=== PATIENT | male | born 1955 | race African-American/Black ===

== ENCOUNTER 2019-08-07 15:01 | Inpatient (IN) ==
--- NOTE | 2019-08-07 15:19 | Emergency Department Note ---
Impression & Plan Hematuria, Bladder mass, Anemia, Blood pressure abnormally low, Weakness ED Provider Note NAME: ARMAAN SPRINGER51Truman BESS AGE: 63 SEX: M ARRIVES VIA: Walk-In INFORMANT: Patient, ED PROVIDER(S): Jaleel Combs MD CHIEF COMPLAINT: Hematuria PLAN: Disposition: Admit MEDICAL DECISION MAKING: The patient is a pleasant 63-year-old gentleman, current inmate at [facility], pmhx DM2, HTN, BPH who presents emergency department for evaluation of gross hematuria which began today with a similar episode that happened last week with unremarkable x-ray of his abdomen and urine analysis per his report. The patient leonela any history of similar episodes in the past. He denies any fevers cough congestion, nausea, vomiting, diarrhea. He denies any lightheadedness though he does feel weak overall. On arrival the patient is fartigued appearing but in NAD, AF BP 80s/60s but mentating normally and VS otherwise stable. He appears clinically dry. Abdomen is benign. WBC and platelets within normal limits. H/H 10.2/32 without prior values for co mparison in our system however upon discussion with [facility] it appears his last H/H was in October 2018 where he had a hemoglobin of 11.5. Chemistry without acidosis. LFTs unremarkable. UA demonstrates gross hematuria without evidence of infection. CT of abdomen pelvis was performed and demonstrates a large bladder mass measuring 9 x 7 x 6 cm. Mass is suspicious for malignancy versus possible large clot. I did review these findings with the patient in addition to Dr. Loyola, [facility] and given the patient's low blood pressure and anemia of unclear chronicity in the setting of his bladder mass we agreed reasonable to proceed with admission for trending of H/H and likely urology consultation. Case was discussed with Justina Landaverde, [facility] PAC, with Dr. Dempsey, [facility] hospitalist, who will evaluate the patient for admission. Triage Nursing notes reviewed and agree them. Additional history obtained from [facility] report Prior medical records reviewed Vital Signs: reviewed and remarkable for hypotension. Differential diagnosis: Renal colic, UTI, appendicitis, diverticulitis, mesenteric ischemia, aortic pathology, infections, inflammatory bowel disease, PUD, biliary pathology, as well as other pathologies. ER treatment provided: See below. Diagnostics interpreted by me: Cardiac Monitoring: An order for continuous cardiac monitoring was placed and demonstrated NSR, 73 bpm, no ectopy. Laboratory studies: See below Imaging studies: ABDOMEN AND PELVIS CT WITH IV CONTRAST CT DOSE: 673.41 mGy.cm HISTORY: Acute hematuria gross hematuria TECHNIQUE: Multiaxial CT images of the abdomen and pelvis were performed following the IV administration of 90 cc of Optiray 320, A dose lowering technique was utilized adhering to the principles of ALARA. COMPARISON STUDY: None. FINDINGS: Clear lung bases. Imaged inferior cardiac chambers are unremarkable. Trace pericardial effusion. No pneumatosis or pneumoperitoneum. Spleen, gallbladder and left adrenal gland are unremarkable. Indeterminate soft tissue attenuating 2.7 x 2.0 cm right adrenal gland lesion. Unremarkable appearance of the liver. Indeterminate 4 mm hypodensity of the hepatic dome is too small to characterize. Patency of the hepatic and portal veins. 12 mm hypodensity of the interpolar left kidney renal sinus may reflect a renal cyst. No ureteral calculi or obstructive uropathy. Moderate urinary bladder distention with mild diffuse wall thickening. Marked prostamegaly. There is a heterogeneous ovoid lesion involving the central and right paracentral urinary bladder which measures up to at least 9.2 x 7.4 x 6.7 cm, image 347 series 3. Mild fusiform dilation of the distal abdominal aorta, 3.1 x 2.9 cm. Fusiform dilation of the right common iliac artery, 2.2 cm with ulcerative plaque. Severe atheromatous plaque noted throughout. Mild nonspecific stranding surrounds the aorta and common iliac arteries. Unremarkable IVC. No adenopathy. No bowel obstruction or bowel wall thickening. Mild colonic diverticulosis. Mild fecal retention. Normal appendix. Small fat filled periumbilical hernia. Soft tissues are unremarkable. There are no suspicious lytic or blastic osseous lesions identified. Degenerative changes of the spine, pelvis and hips. IMPRESSION: 1. Marked prostamegaly with urinary bladder distention and wall thickening suggestive of chronic bladder outlet obstruction. Additionally, there is a large heterogeneous intraluminal mass of the urinary bladder which measures over 9 cm in greatest dimension. Urothelial malignancy versus intraluminal hematoma are the primary differential considerations. Correlation with urology consultation and cystoscopy recommended. 2. No urolith or obstructive uropathy. 3. 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 Additionally, there is mild nonspecific periaortic inflammatory stranding possibly reflecting underlying aortitis. 4. No bowel obstruction or bowel wall thickening. Normal appendix. 5. Additional findings as above. Consultation(s): Case was discussed with Justina Landaverde [facility] PAC, with Dr. Dempsey, [facility] hospitalist who will evaluate the patient for admission. HPI: The patient is a pleasant 63-year-old gentleman, current inmate at [facility], pmx DM2, HTN, BPH who presents emergency department for evaluation of gross hematuria which began today with a similar episode that happened last week with unremarkable x-ray of his abdomen and urine analysis per his report. The patient leonela any history of similar episodes in the past. He denies any fevers cough congestion, nausea, vomiting, diarrhea. He denies any lightheadedness though he does feel weak overall. ROS: See above HPI for pertinent positives & negatives. A total of 10 systems reviewed and were otherwise negative. PAST MEDICAL HISTORY:See Below PAST SURGICAL HISTORY:See Below FAMILY HISTORY:See Below SOCIAL HISTORY:See Below HOME MEDICATIONS:See Below ALLERGIES:See Below VITALS:See Below PHYSICAL EXAMINATION: GENERAL: Awake, alert, fatigued-appearing, in no distress HENT: Normocephalic, atraumatic. Oropharynx with dry mucous membranes and otherwise unremarkable. EYES: Normal conjunctiva. Sclera non-icteric. NECK: Supple. No nuchal rigidity. FROM. No JVD. RESPIRATORY: Clear to auscultation. CARDIAC: Regular rate, normal rhythm. Extremities warm and well perfused. Pulses equal. ABDOMEN: Soft, non-distended. No tenderness to palpation. No rebound or guarding. No masses. RECTAL: Deferred. MUSCULOSKELETAL: Chest examination reveals no tenderness. The back is symmetrical on inspection without obvious abnormality. There is no CVA tenderness to palpation. No joint edema. LOWER EXTREMITIES: Calves are equal size bilaterally and non-tender. No edema. No discoloration. NEURO: Normal sensorium. No sensory or motor deficits noted. SKIN: No rash or jaundice noted. ED COURSE: Jaleel Combs MD Past Med/Surg History Medical History Anemia BPH (benign prostatic hyperplasia) CVA (cerebral vascular accident) Diabetes mellitus, type II HLD (hyperlipidemia) HTN (hypertension) Surgical History No pertinent past surgical history Family History Denies family history of Cancer Social History Preferred Language: [place] Communication Ability: Effective Beliefs That Will Affect Care: None Current Living Situation: Other Current Living Situation Comment: [place] Feels Safe at Home: Yes Smoking Status: Former smoker Do You Dip or Chew Tobacco: No ; Hx Alcohol Use: No Hx Substance Use: No Allergies Allergies Allergy/AdvReac Type Severity Reaction Status Date / Time No Known Allergies Allergy Verified 08/07/19 16:12 Home Meds Home Medications Medication Instructions Recorded Confirmed amlodipine 10 mg PO DAILY 08/07/19 08/07/19 aspirin [Aspir-81] 81 mg PO DAILY 08/07/19 08/07/19 atorvastatin 80 mg PO DAILY 08/07/19 08/07/19 glipizide 10 mg PO BID 08/07/19 08/07/19 hydrochlorothiazide 25 mg PO DAILY 08/07/19 08/07/19 insulin NPH and regular human 5 unit SUBCUT BID 08/07/19 08/07/19 [Novolin 70/30 U-100 Insulin] latanoprost 1 drp OPHTHALMIC (EYE) PM 08/07/19 08/07/19 lisinopril 20 mg PO DAILY 08/07/19 08/07/19 metformin 1,000 mg PO BID 08/07/19 08/07/19 terazosin 10 mg PO HS 08/07/19 08/07/19 Results & Data (ED) Vital Signs Vital Signs - 24 hr 08/07/19 15:12 08/07/19 15:43 08/07/19 15:47 Temperature 36.5 C Temperature Source Oral Pulse Rate 92 H 73 74 Pulse Rate [Apical] Pulse Rate from SpO2 Sensor 73 72 Respiratory Rate 20 18 18 Blood Pressure 88/64 L 117/72 Blood Pressure [Left Arm] Blood Pressure Mean 72 81 Blood Pressure Mean [Left Arm] Blood Pressure Position Sitting Pulse Oximetry 100 100 99 Oxygen Delivery Method Room Air Sepsis Recent Fever Within 48 Hours No Sepsis New/Unexplained Change in Mental Status No Sepsis Action Taken by Nursing No Action Required 08/07/19 15:52 08/07/19 16:00 08/07/19 16:01 Temperature Temperature Source Pulse Rate 67 67 Pulse Rate [Apical] Pulse Rate from SpO2 Sensor 67 68 Respiratory Rate 16 20 Blood Pressure 121/73 Blood Pressure [Left Arm] Blood Pressure Mean 89 Blood Pressure Mean [Left Arm] Blood Pressure Position Pulse Oximetry 98 100 100 Oxygen Delivery Method Room Air Sepsis Recent Fever Within 48 Hours Sepsis New/Unexplained Change in Mental Status Sepsis Action Taken by Nursing 08/07/19 17:55 08/07/19 17:56 08/07/19 18:00 Temperature Temperature Source Pulse Rate 67 Pulse Rate [Apical] Pulse Rate from SpO2 Sensor 68 65 67 Respiratory Rate 13 Blood Pressure 126/72 125/72 Blood Pressure [Left Arm] Blood Pressure Mean 95 90 Blood Pressure Mean [Left Arm] Blood Pressure Position Pulse Oximetry 100 100 100 Oxygen Delivery Method Sepsis Recent Fever Within 48 Hours Sepsis New/Unexplained Change in Mental Status Sepsis Action Taken by Nursing 08/07/19 18:01 08/07/19 19:44 08/07/19 19:45 Temperature Temperature Source Pulse Rate 67 74 Pulse Rate [Apical] Pulse Rate from SpO2 Sensor 67 77 75 Respiratory Rate 14 23 Blood Pressure 127/61 Blood Pressure [Left Arm] Blood Pressure Mean 79 Blood Pressure Mean [Left Arm] Blood Pressure Position Pulse Oximetry 100 96 100 Oxygen Delivery Method Sepsis Recent Fever Within 48 Hours Sepsis New/Unexplained Change in Mental Status Sepsis Action Taken by Nursing 08/07/19 19:47 Temperature Temperature Source Pulse Rate Pulse Rate [Apical] 75 Pulse Rate from SpO2 Sensor Respiratory Rate 18 Blood Pressure Blood Pressure [Left Arm] 127/61 Blood Pressure Mean Blood Pressure Mean [Left Arm] 83 Blood Pressure Position Pulse Oximetry 98 Oxygen Delivery Method Sepsis Recent Fever Within 48 Hours Sepsis New/Unexplained Change in Mental Status Sepsis Action Taken by Nursing Laboratory Data Attestation: I reviewed the patient's lab results. Result diagrams: 08/07/19 15:42 08/07/19 15:42 Lab Results 08/07/19 08/07/19 08/07/19 Range/Units 15:24 15:42 15:42 WBC 5.18 (4.8-10.8) K/uL RBC 4.49 L (4.7-6.1) M/uL Hgb 10.2 L (14.0-18.0) g/dL Hct 32.0 L (42-52) % MCV 71.3 L (80-100) fL MCH 22.7 L (25-34) pg MCHC 31.9 L (32-36) g/dL RDW Std Deviation 43.2 (36.4-46.3) fL RDW Coeff of Bony 16.7 H (11.5-14.5) % Plt Count 206 (130-400) K/uL Immature Gran % (Auto) 0.2 % Neut % (Auto) 61.6 % Lymph % (Auto) 30.1 % [place] % (Auto) 7.1 % Eos % (Auto) 0.6 % Baso % (Auto) 0.4 % Immature Gran # (Auto) 0.01 (0.00-0.02) K/uL Neut # (Auto) 3.19 (1.4-6.5) K/uL Lymph # (Auto) 1.56 (1.2-3.4) K/uL [place] # (Auto) 0.37 (0.11-0.59) K/uL Eos # (Auto) 0.03 (0-0.5) K/uL Baso # (Auto) 0.02 (0-0.2) K/uL PT (9.0-12.0) Seconds INR (0.9-1.1) Sodium 141 (136-145) mmol/L Potassium 3.3 L (3.5-5.1) mmol/L Chloride 105 (98-107) mmol/L Carbon Dioxide 27 (21-32) mmol/L Anion Gap 9.0 (3-11) BUN 17 (7-18) mg/dl Creatinine 1.15 (0.6-1.4) mg/dl Est Cr Clr Drug Dosing Not Reportable Est GFR ( Amer) 79.2 Est GFR (Non-Af Amer) 68.3 BUN/Creatinine Ratio 14.6 (10-20) Glucose 233 H (70-99) mg/dl Calcium 8.8 (8.5-10.1) mg/dl Total Bilirubin 0.2 (0.2-1) mg/dl AST 9 L (15-37) U/L ALT 24 (12-78) U/L Alkaline Phosphatase 70 (45-117) U/L Total Protein 7.6 (6.4-8.2) gm/dl Albumin 3.4 (3.4-5.0) gm/dl Globulin 4.2 H (2.5-4.0) gm/dl Albumin/Globulin Ratio 0.8 L (0.9-2) Lipase 95 (73-393) U/L Urine Color Red Urine Appearance Turbid A (Clear) Urine pH 7.5 (4.5-7.5) Ur Specific [place] 1.025 (1.000-1.030) Urine Protein 3+ H (Negative) Urine Glucose (UA) 1+ H (Negative) Urine Ketones Negative (Negative) Urine Blood 3+ H (Negative) Urine Nitrite Negative (Negative) Urine Bilirubin Negative (Negative) Urine Urobilinogen Negative (Negative) Ur Leukocyte Esterase Negative (Negative) Urine RBC >30 H (0-4) /hpf Urine WBC 5-10 H (0-5) /hpf Ur Epithelial Cells 0-5 (0-5) /lpf Urine Bacteria Negative (Negative) Hepatitis C Ab Screen (Neg) 08/07/19 08/07/19 Range/Units 15:42 15:42 WBC (4.8-10.8) K/uL RBC (4.7-6.1) M/uL Hgb (14.0-18.0) g/dL Hct (42-52) % MCV (80-100) fL MCH (25-34) pg MCHC (32-36) g/dL RDW Std Deviation (36.4-46.3) fL RDW Coeff of Bony (11.5-14.5) % Plt Count (130-400) K/uL Immature Gran % (Auto) % Neut % (Auto) % Lymph % (Auto) % [place] % (Auto) % Eos % (Auto) % Baso % (Auto) % Immature Gran # (Auto) (0.00-0.02) K/uL Neut # (Auto) (1.4-6.5) K/uL Lymph # (Auto) (1.2-3.4) K/uL [place] # (Auto) (0.11-0.59) K/uL Eos # (Auto) (0-0.5) K/uL Baso # (Auto) (0-0.2) K/uL PT 10.3 (9.0-12.0) Seconds INR 1.0 (0.9-1.1) Sodium (136-145) mmol/L Potassium (3.5-5.1) mmol/L Chloride (98-107) mmol/L Carbon Dioxide (21-32) mmol/L Anion Gap (3-11) BUN (7-18) mg/dl Creatinine (0.6-1.4) mg/dl Est Cr Clr Drug Dosing Est GFR ( Amer) Est GFR (Non-Af Amer) BUN/Creatinine Ratio (10-20) Glucose (70-99) mg/dl Calcium (8.5-10.1) mg/dl Total Bilirubin (0.2-1) mg/dl AST (15-37) U/L ALT (12-78) U/L Alkaline Phosphatase (45-117) U/L Total Protein (6.4-8.2) gm/dl Albumin (3.4-5.0) gm/dl Globulin (2.5-4.0) gm/dl Albumin/Globulin Ratio (0.9-2) Lipase (73-393) U/L Urine Color Urine Appearance (Clear) Urine pH (4.5-7.5) Ur Specific [place] (1.000-1.030) Urine Protein (Negative) Urine Glucose (UA) (Negative) Urine Ketones (Negative) Urine Blood (Negative) Urine Nitrite (Negative) Urine Bilirubin (Negative) Urine Urobilinogen (Negative) Ur Leukocyte Esterase (Negative) Urine RBC (0-4) /hpf Urine WBC (0-5) /hpf Ur Epithelial Cells (0-5) /lpf Urine Bacteria (Negative) Hepatitis C Ab Screen Neg (Neg) Administered Medications Ceftriaxone Sodium 2,000 mg/ (Dextrose) 70 mls @ 100 mls/hr IV Q24H RAUL; Protocol Stop: 08/12/19 22:29 Last Infusion: 08/07/19 23:28 Dose: 0 mls/hr Documented by: [id number] Admin: 08/07/19 22:33 Dose: 100 mls/hr Documented by: [id number] Sodium Chloride (Nss 1000ml) 1,000 mls @ 80 mls/hr IV .[id number] RAUL Stop: 08/08/19 11:29 Last Admin: 08/07/19 22:41 Dose: 80 mls/hr Documented by: [id number] Insulin Glargine (Lantus Solostar Pen) 0 - 12 units SC BID RAUL Stop: 09/06/19 21:50 Last Admin: 08/07/19 22:55 Dose: 6 units Documented by: [id number] Cosigned by: [id number] Latanoprost (Xalatan Oph) 1 drops OP PM RAUL Stop: 09/06/19 21:50 Last Admin: 08/07/19 22:33 Dose: 1 drops Documented by: [id number] Terazosin HCl (Hytrin) 10 mg PO HS RAUL Stop: 09/06/19 21:50 Last Admin: 08/07/19 22:32 Dose: 10 mg Documented by: [id number] Discontinued Medications Sodium Chloride (Nss 1000ml) 1,000 mls @ 999 mls/hr IV .[id number] ONE Stop: 08/07/19 16:25 Last Infusion: 08/07/19 18:12 Dose: 0 mls/hr Documented by: [id number] Admin: 08/07/19 15:53 Dose: 999 mls/hr Documented by: [id number] Insulin Aspart (Novolog Flexpen) 0 units SC ACHS RAUL Stop: 09/06/19 21:50 Last Admin: 08/07/19 22:56 Dose: 7 units Documented by: [id number] Cosigned by: [id number] Ioversol (Optiray 320 100ml) 90 ml IV ONCE PRN PRN Reason: Interaction Checking Stop: 08/11/19 16:50 Last Admin: 08/07/19 16:52 Dose: 90 ml Documented by: [id number] Potassium Chloride (Klor-Con M20) 40 meq PO 2215 ONE Stop: 08/07/19 22:16 Last Admin: 08/07/19 22:33 Dose: 40 meq Documented by: [id number] Blood Pressure Blood Pressure Findings: Low blood pressure Blood Pressure Disposition: further management by hospitalist Discharge Plan Visit Data *Final* Discharge Date/Time: 08/07/19 21:18 Chief Complaint: Dehydration Stated Complaint: DEHYDRATED ED Provider: Jaleel Combs Discharge Problem: Hematuria, Bladder mass, Anemia, Blood pressure abnormally low, Weakness Patient Disposition: Admitted As Inpatient Discharge Instructions Interventions: ED Discharge Assessment Last Done: 08/07/19 21:18 Discharge Problem: Hematuria Qualifiers: Hematuria type: gross Qualified Code(s): R31.0 - Gross hematuria Anemia Qualifiers: Anemia type: unspecified type Qualified Code(s): D64.9 - Anemia, unspecified
[2019-08-07] MEDS ORDERED: SODIUM CHLORIDE 0.9% 1000ML 1,000 ML IV ONE (15:25)
[2019-08-07 15:56] LABS: Basophils # (auto) 0.02 K/uL (0-0.2); Basophils % (auto) 0.4 %; Eosinophils # (auto) 0.03 K/uL (0-0.5); Eosinophils % (auto) 0.6 %; Hemoglobin 10.2 g/dL (14.0-18.0); Immature Granulocytes # (auto) 0.01 K/uL (0.00-0.02); Immature Granulocytes % (auto) 0.2 %; Lymphocytes # (auto) 1.56 K/uL (1.2-3.4); Lymphocytes % (auto) 30.1 %; Mean Corpuscular Hemoglobin 22.7 pg (25-34); Mean Corpuscular Hgb Conc 31.9 g/dL (32-36); Mean Corpuscular Volume 71.3 fL (80-100); Monocytes # (auto) 0.37 K/uL (0.11-0.59); Monocytes % (auto) 7.1 %; Neutrophils # (auto) 3.19 K/uL (1.4-6.5); Neutrophils % (auto) 61.6 %; Platelet Count 206 K/uL (130-400); RDW Coefficient of Variation 16.7 % (11.5-14.5); RDW Standard Deviation 43.2 fL (36.4-46.3); Red Blood Count 4.49 M/uL (4.7-6.1); White Blood Count 5.18 K/uL (4.8-10.8)
[2019-08-07 16:12] LABS: Alanine Aminotransferase 24 U/L (12-78); Albumin Level 3.4 gm/dl (3.4-5.0); Aspartate Aminotransferase 9 U/L (15-37); BUN Creatinine Ratio 14.6 (10-20); Blood Urea Nitrogen 17 mg/dl (7-18); Calcium 8.8 mg/dl (8.5-10.1); Carbon Dioxide 27 mmol/L (21-32); Chloride 105 mmol/L (98-107); Est GFR (African American) 79.2; Est GFR (Non-African American) 68.3; Glucose 233 mg/dl (70-99); Lipase 95 U/L (73-393); Potassium 3.3 mmol/L (3.5-5.1); Prothrombin Time 10.3 Seconds (9.0-12.0); Sodium 141 mmol/L (136-145)
[2019-08-07 16:15] LABS: Albumin Globulin Ratio 0.8 (0.9-2); Alkaline Phosphatase 70 U/L (45-117); Bilirubin,Total 0.2 mg/dl (0.2-1); Globulin 4.2 gm/dl (2.5-4.0); Total Protein 7.6 gm/dl (6.4-8.2)
[2019-08-07 16:15] LABS: Appearance Urine Turbid (Clear); Bilirubin Urine Negative (Negative); Blood Urine 3+ (Negative); Color Urine Red; Glucose Urine UA 1+ (Negative); Ketones Urine Negative (Negative); Leukocyte Esterase Urine Negative (Negative); Nitrite Urine Negative (Negative); Specific Gravity Urine 1.025 (1.000-1.030); Urobilinogen Urine Negative (Negative); pH Urine 7.5 (4.5-7.5)
[2019-08-07 16:17] LABS: Protein Urine 3+ (Negative)
[2019-08-07 16:18] LABS: Sulfosalicylic Acid Urine Positive (Negative)
[2019-08-07 16:38] LABS: RBC Urine >30 /hpf (0-4)
[2019-08-07 16:40] LABS: Epithelial Cell Urine 0-5 /lpf (0-5)
[2019-08-07 16:41] LABS: Bacteria Urine Negative (Negative)
[2019-08-07] MEDS ORDERED: IOVERSOL 100ml IV PRN (16:51)
--- NOTE | 2019-08-07 17:08 | CT Scan Report ---
ABDOMEN AND PELVIS CT WITH IV CONTRAST CT DOSE: 673.41 mGy.cm HISTORY: Acute hematuria gross hematuria TECHNIQUE: Multiaxial CT images of the abdomen and pelvis were performed following the IV administrat ion of 90 cc of Optiray 320, A dose lowering technique was utilized adhering to the principles of AL CARMELLA. COMPARISON STUDY: None. FINDINGS: Clear lung bases. Imaged inferior cardiac chambers are unremarkable. Trace pericardial effusion. No p neumatosis or pneumoperitoneum. Spleen, gallbladder and left adrenal gland are unremarkable. Indeterm inate soft tissue attenuating 2.7 x 2.0 cm right adrenal gland lesion. Unremarkable appearance of the liver. Indeterminate 4 mm hypodensity of the hepatic dome is too small to characterize. Patency of t he hepatic and portal veins. 12 mm hypodensity of the interpolar left kidney renal sinus may reflect a renal cyst. No ureteral [place] culi or obstructive uropathy. Moderate urinary bladder distention with mild diffuse wall thickening. Marked prostamegaly. There is a heterogeneous ovoid lesion involving the central and right paracentra l urinary bladder which measures up to at least 9.2 x 7.4 x 6.7 cm, image 347 series 3. Mild fusiform dilation of the distal abdominal aorta, 3.1 x 2.9 cm. Fusiform dilation of the right common iliac ar perla, 2.2 cm with ulcerative plaque. Severe atheromatous plaque noted throughout. Mild nonspecific st randing surrounds the aorta and common iliac arteries. Unremarkable IVC. No adenopathy. No bowel obstruction or bowel wall thickening. Mild colonic diverticulosis. Mild fecal retention. Nor mal appendix. Small fat filled periumbilical hernia. Soft tissues are unremarkable. There are no susp icious lytic or blastic osseous lesions identified. Degenerative changes of the spine, pelvis and hip s. IMPRESSION: 1. Marked prostamegaly with urinary bladder distention and wall thickening suggestive of chronic blad linda outlet obstruction. Additionally, there is a large heterogeneous intraluminal mass of the urinary bladder which measures over 9 cm in greatest dimension. Urothelial malignancy versus intraluminal he matoma are the primary differential considerations. Correlation with urology consultation and cystosc opy recommended. 2. No urolith or obstructive uropathy. 3. 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 Additionally, there is mild nonspecific periaort ic inflammatory stranding possibly reflecting underlying aortitis. 4. No bowel obstruction or bowel wall thickening. Normal appendix. 5. Additional findings as above. ACT 112: Negative or not required by law. The above report was generated using voice recognition software. It may contain grammatical, syntax o r spelling errors. Electronically signed by: Alan Lopez M.D. 08/07/2019 5:07 PM
--- NOTE | 2019-08-07 20:12 | History & Physical Report ---
Date of Service August 07, 2019 Assessment & Plan (1) Hematuria: (2) Bladder mass: Pt is 63 y/o M with PMH CVA, HTN, HLD, BPH, anemia, DM II who presented to ER with complaint of hematuria x1 week. Today with hematuria and has had difficulty urinating today and suprapubic pressure. Denies F/C, N/V In ER pt afebrile, P: 92, R: 20, BP: 88/64 up to 125/72, 100% on RA. No leukocytosis, H/H: 10.2/32, BUN: 17, Cr: 1.15, GFR:79, UA: 3+ protein, 3+blood, >30 RBC, no bacteria CT ABD/PELVIS:Marked prostamegaly with urinary bladder distention and wall thickening suggestive of chronic bladder outlet obstruction. Additionally, there is a large heterogeneous intraluminal mass of the urinary bladder which measures over 9 cm in greatest dimension. Urothelial malignancy versus intraluminal hematoma are the primary differential considerations. No urolith or obstructive uropathy. -In ER given 1L NSS -In ER pt reports was able to urinate and reports passing large clot -Bladder scan prn -Rocephin -NPO midnight -IVF -Urology consult -CBC, BMP in am (3) Hypokalemia: K: 3.3 -Replace and monitor (4) Anemia: Hgb:10.2 It is reported pt with Hgb: 11.5 in 10/2018 at [facility] -Monitor H&H (5) Diabetes mellitus, type II: Type II Diabtes Mellitus with [facility] current use of insulin -Hold metformin, glipizide, home insulin -NovoLog, Lantus sliding scale per protocol -A1c in a.m. (6) CVA (cerebral vascular accident): No residual deficit -Hold aspirin for now (7) HTN (hypertension): Initially hypotensive in ER with BP 88/64 up to 125/72 1 L NSS -Hold lisinopril, amlodipine, HCTZ for now and monitor BP closely (8) BPH (benign prostatic hyperplasia): -Continue terazosin (9) HLD (hyperlipidemia): -Continue atorvastatin DVT Prophylaxis -SCDs Full Code as per discussion with pt Follows with Dr Alex at [facility] for routine care Pt was seen and care coordinated with Dr Dempsey. See addendum History of Present Illness Chief Complaint: Hematuria Primary Care Provider: ZURDO Mcdonald Pt is 63 y/o M with PMH CVA, HTN, HLD, BPH, anemia, DM II who presented to ER with complaint of hematuria x1 week. Patient states 1 week ago noticed hematuria which then improved. Patient states again noted hematuria and has had difficulty urinating today. Reports pressure sensation in suprapubic area. Denies other abdominal, flank, back pain, fever, chills, nausea, vomiting. Denies dysuria. Reports history of BPH and frequent urination and reports taking terazosin. While in ER patient states was eventually able to urinate and passed large clot and since with resolution of pressure to suprapubic area. Patient reports history hemoglobin. It is reported from [facility] that patient with hemoglobin of 11.5 in October 2018. Denies diaphoresis, diarrhea, constipation, CHACKO, dizziness, syncope, vision changes, neck pain, CP, SOB, orthopnea, palpitations, cough, sore throat, choking, otalgia, rhinorrhea, paresthesias, weakness, extremity weakness, extremity edema, rashes. Allergies Allergy/AdvReac Type Severity Reaction Status Date / Time No Known Allergies Allergy Verified 08/07/19 16:12 Home Medications Home Medications Medication Instructions Recorded Confirmed Type amlodipine 10 mg PO DAILY 08/07/19 08/07/19 History aspirin [Aspir-81] 81 mg PO DAILY 08/07/19 08/07/19 History atorvastatin 80 mg PO DAILY 08/07/19 08/07/19 History glipizide 10 mg PO BID 08/07/19 08/07/19 History hydrochlorothiazide 25 mg PO DAILY 08/07/19 08/07/19 History insulin NPH and regular human 5 unit SUBCUT BID 08/07/19 08/07/19 History [Novolin 70/30 U-100 Insulin] latanoprost 1 drp OPHTHALMIC (EYE) PM 08/07/19 08/07/19 History lisinopril 20 mg PO DAILY 08/07/19 08/07/19 History metformin 1,000 mg PO BID 08/07/19 08/07/19 History terazosin 10 mg PO HS 08/07/19 08/07/19 History Past Med/Surg History Medical History (Updated 08/07/19 @ 20:16 by Renetta Landaverde PA-C) Anemia BPH (benign prostatic hyperplasia) CVA (cerebral vascular accident) Diabetes mellitus, type II HLD (hyperlipidemia) HTN (hypertension) Surgical History (Updated 08/07/19 @ 20:13 by Renetta Landaverde PA-C) No pertinent past surgical history Family History (Updated 08/07/19 @ 20:13 by Renetta Landaverde PA-C) Denies family history of Cancer Social History (Updated 08/07/19 @ 20:14 by Renetta Landaverde PA-C) Preferred Language: Faroese Communication Ability: Effective Beliefs That Will Affect Care: None Current Living Situation: Other Current Living Situation Comment: [facility] Feels Safe at Home: Yes Smoking Status: Former smoker Do You Dip or Chew Tobacco: No ; Hx Alcohol Use: No Hx Substance Use: No Review of Systems Review of Systems: All systems reviewed & are unremarkable except as noted in HPI & below Physical Exam Physical Exam: General: no distress, WDWN Head: normocephalic, atraumatic Eyes: PERRL, EOM's intact, conjunctiva non-injected, anicteric ENT: normal inspection external ears, nose, mucous membranes moist Neck: supple, trachea midline Lungs: clear, no respiratory distress, no wheezing/rhonchi/rales CV: RRR, no pretibial edema Abd: +healed scar to right side of abdomen, normal BS, soft, non-tender, no flank tenderness to palpation Ext: no cyanosis, no calf tenderness Neuro: A&O x 3, no focal deficits noted, normal affect Skin: warm, dry Results & Data Results & Data ([facility]) Vital Signs (Past 12 Hours) Vital Signs Temp Pulse Pulse Resp BP BP Pulse Ox 08/07/19 19:47 75 18 127/61 98 08/07/19 19:44 96 08/07/19 18:01 67 14 100 08/07/19 18:00 67 13 125/72 100 08/07/19 17:56 100 08/07/19 17:55 126/72 100 08/07/19 16:01 67 20 100 08/07/19 16:00 67 16 121/73 100 08/07/19 15:52 98 08/07/19 15:47 74 18 99 08/07/19 15:43 73 18 117/72 100 08/07/19 15:12 36.5 C 92 H 20 88/64 L 100 Laboratory Results Short CBC 08/07/19 08/07/19 Range/Units 15:42 15:42 WBC 5.18 (4.8-10.8) K/uL Hgb 10.2 L (14.0-18.0) g/dL Hct 32.0 L (42-52) % Plt Count 206 (130-400) K/uL Potassium 3.3 L (3.5-5.1) mmol/L BMP 08/07/19 15:42 Sodium 141 Potassium 3.3 L Chloride 105 Carbon Dioxide 27 BUN 17 Creatinine 1.15 Glucose 233 H Calcium 8.8 Liver Function 08/07/19 Range/Units 15:42 Total Bilirubin 0.2 (0.2-1) mg/dl AST 9 L (15-37) U/L ALT 24 (12-78) U/L Alkaline Phosphatase 70 (45-117) U/L Albumin 3.4 (3.4-5.0) gm/dl Urine 08/07/19 Range/Units 15:24 Urine Color Red Urine Appearance Turbid A (Clear) Urine pH 7.5 (4.5-7.5) Ur Specific [place] 1.025 (1.000-1.030) Urine Protein 3+ H (Negative) Urine Glucose (UA) 1+ H (Negative) Diagnostic Findings CT ABD/PELVIS: IMPRESSION: 1. Marked prostamegaly with urinary bladder distention and wall thickening s uggestive of chronic bladder outlet obstruction. Additionally, there is a large heterogeneous intraluminal mass of the urinary bladder which measures over 9 cm in greatest dimension. Urothelial malignancy versus intraluminal hematoma are the primary differential considerations. Correlation with urology consultation and cystoscopy recommended. 2. No urolith or obstructive uropathy. 3. 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 Additionally, there is mild nonspecific periaortic inflammatory stranding possibly reflecting underlying aortitis. 4. No bowel obstruction or bowel wall thickening. Normal appendix. 5. Additional findings as above. Code Status & VTE Plan VTE Prophylaxis Plan VTE Prophylaxis will be ordered: Yes Supervising Physician Co-Signing Physician Notes I, Dr. Eloy Dempsey, have seen and examined the patient Zneon Paredes with physician assistant floor covering printer and would like to comment that On Physical Exam General: no acute distress. Reported he urinated in bathroom in ED today and also seeing blood clots in urination Lungs: clear to auscultation bilaterally Heart: regular rate Abdomen: soft, nontender, positive bowel sounds Extremities: moves all extremities ASSESSMENT AND PLAN -This is a patient from [facility] with hematuria and on CT scan with bladder mass. Findings are suspicious for bladder cancer. Send PSA, request urology service to evaluate. NPO after midnight so will give insulin sliding scale for Type II diabetes. Hold the home oral diabetes medications while inpatient. Give ceftriaxone as a urology procedure is expected as a prophylactic antibiotic. Urine analysis without bacteria. Monitor urine output. May benefit from Flomax. Admission with anemia of 10. Maintain active type and screen. Continue outpatient medications for hypertension. Denies family history of medical problems. Denies allergies to medications or foods. Full Code Status -agree with other plans as documented by physician assistant floor covering printer for other health issues -Full Code Status as per my discussion with patient -My colleague will be taking over the care of the patient as consult service hospitalist starting on 08/08/2019
[2019-08-07] MEDS ORDERED: INSULIN ASPART 100 UNITS/ML 3 ML PEN SC SCH (21:51)
[2019-08-07] MEDS ORDERED: ACETAMINOPHEN 325 MG TAB PO PRN (21:51)
[2019-08-07] MEDS ORDERED: CARBOHYDRATES FOR HYPOGLYCEMIA PO PRN (21:51)
[2019-08-07] MEDS ORDERED: DEXTROSE 50% 50 ML SYRINGE IV PRN (21:51)
[2019-08-07] MEDS ORDERED: GLUCOSE 40% GEL 15 GM TUBE PO PRN (21:51)
[2019-08-07] MEDS ORDERED: GLUCAGON FOR INJ 1 MG VIAL SQ PRN (21:51)
[2019-08-07] MEDS ORDERED: GLUCOSE 10 TABS/TUBE PO PRN (21:51)
[2019-08-07] MEDS ORDERED: ONDANSETRON INJ 2 MG/ML 2 ML VIAL IV PRN (21:51)
[2019-08-07] MEDS ORDERED: POTASSIUM CHLORIDE 20 MEQ TABCR PO ONE (22:15)
[2019-08-07] MEDS: TERAZOSIN HCL 5 MG CAP PO SCH (22:32)
[2019-08-07] MEDS: LATANOPROST 0.005% OP SOLN 2.5 ML BTL OP SCH (22:33)
[2019-08-07] MEDS: cefTRIAXone SODIUM 2,000 MG in DEXTROSE 5% 50 ML IV SCH (22:33)
[2019-08-07] MEDS: SODIUM CHLORIDE 0.9% 1000ML 1,000 ML IV SCH (22:41)
[2019-08-07] MEDS: INSULIN GLARGINE SOLOSTAR 100 UNITS/ML 3 ML PEN SC SCH (22:55)
[2019-08-08] MEDS ORDERED: Nursing to Pharmacy Communication ONE ×2 (01:12→11:08)
[2019-08-08 05:57] LABS: Hematocrit (blood only) 26.1 % (42-52); Hemoglobin 8.4 g/dL (14.0-18.0); Mean Corpuscular Hemoglobin 22.9 pg (25-34); Mean Corpuscular Hgb Conc 32.2 g/dL (32-36); Mean Corpuscular Volume 71.1 fL (80-100); Platelet Count 186 K/uL (130-400); RDW Coefficient of Variation 16.8 % (11.5-14.5); RDW Standard Deviation 43.6 fL (36.4-46.3); Red Blood Count 3.67 M/uL (4.7-6.1)
[2019-08-08] MEDS ORDERED: INSULIN ASPART 100 UNITS/ML 3 ML PEN SC SCH (06:00)
[2019-08-08 06:37] LABS: Estimated Average Glucose 309 mg/dl; Hemoglobin A1C 12.4 % (4.5-5.6)
[2019-08-08 06:41] LABS: BUN Creatinine Ratio 18.7 (10-20); Calcium 7.9 mg/dl (8.5-10.1); Creatinine Clr Calc Pharmacy 147.1 ml/min; Est GFR (African American) 120.2; Est GFR (Non-African American) 103.7; Potassium 3.2 mmol/L (3.5-5.1)
[2019-08-08] MEDS: INSULIN GLARGINE SOLOSTAR 100 UNITS/ML 3 ML PEN SC SCH (08:27)
--- NOTE | 2019-08-08 08:46 | Urology Consultation ---
Date of Consultation August 08, 2019 Assessment & Plan (1) Bladder mass: (2) Hematuria: Hematuria and bladder mass - size of the mass/clot is problematic - he has successfully avoided a catheter thus far, but certainly has a high risk of retention - will require cystoscopy to further evaluate and determine the nature of the intraluminal mass - low hgb - no significant clinical signs of anemia - will have to monitor - HgbA1c is very high - needs drastic improvement in BG control - with the anticipation that he may require surgery in the future - given the current COVID crisis - we will need to determine availability/options/timing of cystoscopy - possible tomorrow, will make NPO p MN in case we can make that work History of Present Illness Attending Physician: Burak Ryan MD History of Present Illness 63y/o prisoner presenting with 1 week of gross hematuria and variable voiding pattern - no prior hx of hematuria - no abdominal or flank pain - denies prior smoking hx - denies substantial voiding dysfunction prior to recent onset of symptoms - labs showing very high HgB A1c; anemia; good renal function (cr <1.0) - CT - very large prostate, also appears to have a large bladder mass vs clot (suspicion of tumor is relatively high) Allergies Allergy/AdvReac Type Severity Reaction Status Date / Time No Known Allergies Allergy Verified 08/07/19 16:12 Home Medications Home Medications Medication Instructions Recorded Confirmed Type amlodipine 10 mg PO DAILY 08/07/19 08/07/19 History aspirin [Aspir-81] 81 mg PO DAILY 08/07/19 08/07/19 History atorvastatin 80 mg PO DAILY 08/07/19 08/07/19 History glipizide 10 mg PO BID 08/07/19 08/07/19 History hydrochlorothiazide 25 mg PO DAILY 08/07/19 08/07/19 History insulin NPH and regular human 5 unit SUBCUT BID 08/07/19 08/07/19 History [Novolin 70/30 U-100 Insulin] latanoprost 1 drp OPHTHALMIC (EYE) PM 08/07/19 08/07/19 History lisinopril 20 mg PO DAILY 08/07/19 08/07/19 History metformin 1,000 mg PO BID 08/07/19 08/07/19 History terazosin 10 mg PO HS 08/07/19 08/07/19 History Patient History Medical History Anemia BPH (benign prostatic hyperplasia) CVA (cerebral vascular accident) Diabetes mellitus, type II HLD (hyperlipidemia) HTN (hypertension) Surgical History No pertinent past surgical history Family History Denies family history of Cancer Social History Preferred Language: Ivorian Communication Ability: Effective Beliefs That Will Affect Care: None Current Living Situation: Other Current Living Situation Comment: [facility] Feels Safe at Home: Yes Smoking Status: Former smoker Do You Dip or Chew Tobacco: No ; Hx Alcohol Use: No Hx Substance Use: No Review of Systems Constitutional: no fever, no chills and no fatigue Eyes: no worsening vision Ear, Nose, Mouth, Throat: no facial pain and no pain with swallowing Respiratory: no cough and no dyspnea Cardiovascular: no chest pain and no palpitations Gastrointestinal: no abdominal pain, no nausea and no vomiting Musculoskeletal: no back pain Integumentary: no rash and no urticaria Neurologic: no gait abnormality and no unsteadiness Psychiatric: no behavioral changes and no depression Endocrine: no fatigue Physical Exam Constitutional: well developed and well nourished Neck: neck nontender Respiratory: normal respiratory effort; no respiratory distress and does not use accessory muscles Cardiovascular: Rate/Rhythm: regular rate Vessels: radial pulses present Extremities: no edema Gastrointestinal (Abdomen): Inspection/Auscultation: abdomen normal to inspection Percussion/Palpation: abdomen soft; abdomen nontender and no guarding Musculoskeletal: Head/Neck/Chest: normocephalic and head atraumatic Extremities: extremities normal to inspection Skin: no rashes and no lesions Trauma: no evidence of skin trauma Neurologic: awake; not obtunded Speech / Cognition: normal speech Motor/Sensory: no tremor Psychiatric: Orientation: alert and oriented x 3 Genitourinary: no CVA tenderness Lymphatic: no lymphadenopathy Results & Data Vital Signs (Past 12 Hours) Vital Signs Temp Pulse Pulse Resp BP BP Pulse Ox 08/08/19 07:20 36.5 C 62 18 119/68 100 08/07/19 21:45 37.0 C 62 18 149/79 H 97 08/07/19 21:01 65 17 99 08/07/19 21:00 64 14 134/70 99 PG Care Time/CCT Total # of Minutes Spent Total Time Spent with Patient: Total time spent is greater than 50% in coordination of care (as documented) at patient's floor/unit and/or counseling patient: Coding Level of Care Code 40372 Inpt Consult Level 4 Diagnoses Bladder mass N32.89 Hematuria R31.0 Hematuria type: gross (1) Hematuria Hematuria type: gross Qualified Code(s): R31.0 - Gross hematuria
[2019-08-08] MEDS ORDERED: POTASSIUM CHLORIDE 20 MEQ TABCR PO STA (08:48)
--- NOTE | 2019-08-08 08:52 | Hospitalist Progress Note ---
Date of Service August 08, 2019 Assessment & Plan (1) Hematuria: (2) Bladder mass: Pt is 63 y/o M with PMH CVA, HTN, HLD, BPH, anemia, DM II who presented to ER with complaint of hematuria x1 week. Then also difficulty urinating and suprapubic pressure. Denies F/C, N/V In ER pt afebrile, P: 92, R: 20, BP: 88/64 up to 125/72, 100% on RA. No leukocytosis, H/H: 10.2/32, BUN: 17, Cr: 1.15, GFR:79, UA: 3+ protein, 3+blood, >30 RBC, no bacteria CT ABD/PELVIS:Marked prostamegaly with urinary bladder distention and wall thickening suggestive of chronic bladder outlet obstruction. Additionally, there is a large heterogeneous intraluminal mass of the urinary bladder which measures over 9 cm in greatest dimension. Urothelial malignancy versus intraluminal hematoma are the primary differential considerations. No urolith or obstructive uropathy. -In ER given 1L NSS -In ER pt reports was able to urinate and reports passing large clot -Bladder scan prn -cont. Rocephin -NPO midnight -IVF -Urology consulted, plan for likely cystoscopy tomorrow 08/09/2019 -CBC, BMP in am (3) Hypokalemia: K: 3.3 -Replace and monitor (4) Anemia: Hgb:10.2 on admission It is reported pt with Hgb: 11.5 in 10/2018 at [facility] -Now down to 8.4 -No chest pain, dizziness, shortness of breath, lightheadedness -Monitor H&H (5) Diabetes mellitus, type II: Type II Diabtes Mellitus with care home current use of insulin -Hold metformin, glipizide, home insulin -NovoLog, Lantus sliding scale per protocol -Hb A1c 12.4% -community nutrition educator consulted as well as pharmacy glycemic management -Seems like patient was started on insulin 70/30 before his hospitalization -May need further adjustment of insulin prior to discharge (6) CVA (cerebral vascular accident): No residual deficit -Hold aspirin for now (7) HTN (hypertension): Initially hypotensive in ER with BP 88/64 up to 125/72 1 L NSS -Hold lisinopril, amlodipine, HCTZ for now and monitor BP closely -Currently normotensive (8) BPH (benign prostatic hyperplasia): -Continue terazosin (9) HLD (hyperlipidemia): -Continue atorvastatin DVT Prophylaxis -SCDs Full Code as per discussion with pt Follows with Dr Alex at [facility] for routine care Admission and Anticipated Discharge Date Admission Date: August 07, 2019 Subjective No acute events overnight. Patient sitting up in bed, eating lunch. Denies any fevers, chills, chest pain, shortness of breath, abdominal pain. He continues to have hematuria. Denies any chest pain, dizziness, lightheadedness. Seen earlier today by urology, plan for possible cystoscopy tomorrow. Hemoglobin A1c elevated at 12.4%, possible due to anemia possibly due to uncontrolled diabetes. Diabetes education consulted, pharmacy glycemic control ordered Review of Systems Review of Systems: All systems reviewed & are unremarkable except as noted in HPI & below Constitutional: no fever, no chills, no fatigue and no weakness Respiratory: no cough and no dyspnea Cardiovascular: no chest pain, no palpitations and no edema Gastrointestinal: no abdominal pain, no nausea and no vomiting Genitourinary: + hematuria Physical Exam Physical Exam: General: WD/WN male sitting up in bed, in no acute distress Head: normocephalic, atraumatic Eyes: PERRL, EOM's intact, conjunctiva non-injected, anicteric ENT: normal inspection external ears, nose, mucous membranes moist Neck: supple, trachea midline Lungs: clear, no respiratory distress, no wheezing/rhonchi/rales CV: RRR, no pretibial edema Abd: +healed scar to right side of abdomen, normal BS, soft, non-tender, no flank tenderness to palpation Ext: no cyanosis, no calf tenderness, moves extremities spontaneously Neuro: A&O x 3, no dysarthria, no facial asymmetry, no focal deficits noted, moves extremity spontaneously Psych: normal affect Skin: warm, dry Results & Data Results & Data ([facility]) Vital Signs (Past 12 Hours) Vital Signs Temp Pulse Pulse Resp BP BP Pulse Ox 08/08/19 07:20 36.5 C 62 18 119/68 100 08/07/19 21:45 37.0 C 62 18 149/79 H 97 08/07/19 21:01 65 17 99 08/07/19 21:00 64 14 134/70 99 Laboratory Results 08/08/19 08/08/19 08/08/19 Range/Units 07:40 06:50 05:38 WBC (4.8-10.8) K/uL RBC (4.7-6.1) M/uL Hgb (14.0-18.0) g/dL Hct (42-52) % MCV (80-100) fL MCH (25-34) pg MCHC (32-36) g/dL RDW Std Deviation (36.4-46.3) fL RDW Coeff of Bony (11.5-14.5) % Plt Count (130-400) K/uL Immature Gran % (Auto) % Neut % (Auto) % Lymph % (Auto) % [place] % (Auto) % Eos % (Auto) % Baso % (Auto) % Immature Gran # (Auto) (0.00-0.02) K/uL Neut # (Auto) (1.4-6.5) K/uL Lymph # (Auto) (1.2-3.4) K/uL [place] # (Auto) (0.11-0.59) K/uL Eos # (Auto) (0-0.5) K/uL Baso # (Auto) (0-0.2) K/uL PT (9.0-12.0) Seconds INR (0.9-1.1) Sodium (136-145) mmol/L Potassium (3.5-5.1) mmol/L Chloride (98-107) mmol/L Carbon Dioxide (21-32) mmol/L Anion Gap (3-11) BUN (7-18) mg/dl Creatinine (0.6-1.4) mg/dl Est Cr Clr Drug Dosing Est GFR ( Amer) Est GFR (Non-Af Amer) BUN/Creatinine Ratio (10-20) Glucose (70-99) mg/dl POC Glucose 107 H 109 H (70-99) mg/dl Estimat Average Glucose 309 mg/dl Hemoglobin A1c 12.4 H (4.5-5.6) % Calcium (8.5-10.1) mg/dl Total Bilirubin (0.2-1) mg/dl AST (15-37) U/L ALT (12-78) U/L Alkaline Phosphatase (45-117) U/L Total Protein (6.4-8.2) gm/dl Albumin (3.4-5.0) gm/dl Globulin (2.5-4.0) gm/dl Albumin/Globulin Ratio (0.9-2) Lipase (73-393) U/L Urine Color Urine Appearance (Clear) Urine pH (4.5-7.5) Ur Specific [place] (1.000-1.030) Urine Protein (Negative) Urine Glucose (UA) (Negative) Urine Ketones (Negative) Urine Blood (Negative) Urine Nitrite (Negative) Urine Bilirubin (Negative) Urine Urobilinogen (Negative) Ur Leukocyte Esterase (Negative) Urine RBC (0-4) /hpf Urine WBC (0-5) /hpf Ur Epithelial Cells (0-5) /lpf Urine Bacteria (Negative) Hepatitis C Ab Screen (Neg) Blood Type Antibody Screen 08/08/19 08/08/19 08/08/19 Range/Units 05:38 05:38 05:38 WBC 4.60 L (4.8-10.8) K/uL RBC 3.67 L (4.7-6.1) M/uL Hgb 8.4 L (14.0-18.0) g/dL Hct 26.1 L (42-52) % MCV 71.1 L (80-100) fL MCH 22.9 L (25-34) pg MCHC 32.2 (32-36) g/dL RDW Std Deviation 43.6 (36.4-46.3) fL RDW Coeff of Bony 16.8 H (11.5-14.5) % Plt Count 186 (130-400) K/uL Immature Gran % (Auto) % Neut % (Auto) % Lymph % (Auto) % [place] % (Auto) % Eos % (Auto) % Baso % (Auto) % Immature Gran # (Auto) (0.00-0.02) K/uL Neut # (Auto) (1.4-6.5) K/uL Lymph # (Auto) (1.2-3.4) K/uL [place] # (Auto) (0.11-0.59) K/uL Eos # (Auto) (0-0.5) K/uL Baso # (Auto) (0-0.2) K/uL PT (9.0-12.0) Seconds INR (0.9-1.1) Sodium 145 (136-145) mmol/L Potassium 3.2 L (3.5-5.1) mmol/L Chloride 111 H (98-107) mmol/L Carbon Dioxide 29 (21-32) mmol/L Anion Gap 5.0 (3-11) BUN 12 (7-18) mg/dl Creatinine 0.67 D (0.6-1.4) mg/dl Est Cr Clr Drug Dosing 147.1 Est GFR ( Amer) 120.2 Est GFR (Non-Af Amer) 103.7 BUN/Creatinine Ratio 18.7 (10-20) Glucose 75 (70-99) mg/dl POC Glucose (70-99) mg/dl Estimat Average Glucose mg/dl Hemoglobin A1c (4.5-5.6) % Calcium 7.9 L (8.5-10.1) mg/dl Total Bilirubin (0.2-1) mg/dl AST (15-37) U/L ALT (12-78) U/L Alkaline Phosphatase (45-117) U/L Total Protein (6.4-8.2) gm/dl Albumin (3.4-5.0) gm/dl Globulin (2.5-4.0) gm/dl Albumin/Globulin Ratio (0.9-2) Lipase (73-393) U/L Urine Color Urine Appearance (Clear) Urine pH (4.5-7.5) Ur Specific [place] (1.000-1.030) Urine Protein (Negative) Urine Glucose (UA) (Negative) Urine Ketones (Negative) Urine Blood (Negative) Urine Nitrite (Negative) Urine Bilirubin (Negative) Urine Urobilinogen (Negative) Ur Leukocyte Esterase (Negative) Urine RBC (0-4) /hpf Urine WBC (0-5) /hpf Ur Epithelial Cells (0-5) /lpf Urine Bacteria (Negative) Hepatitis C Ab Screen (Neg) Blood Type A Positive Antibody Screen NEGATIVE 08/07/19 08/07/19 08/07/19 Range/Units 22:05 15:42 15:42 WBC (4.8-10.8) K/uL RBC (4.7-6.1) M/uL Hgb (14.0-18.0) g/dL Hct (42-52) % MCV (80-100) fL MCH (25-34) pg MCHC (32-36) g/dL RDW Std Deviation (36.4-46.3) fL RDW Coeff of Bony (11.5-14.5) % Plt Count (130-400) K/uL Immature Gran % (Auto) % Neut % (Auto) % Lymph % (Auto) % [place] % (Auto) % Eos % (Auto) % Baso % (Auto) % Immature Gran # (Auto) (0.00-0.02) K/uL Neut # (Auto) (1.4-6.5) K/uL Lymph # (Auto) (1.2-3.4) K/uL [place] # (Auto) (0.11-0.59) K/uL Eos # (Auto) (0-0.5) K/uL Baso # (Auto) (0-0.2) K/uL PT 10.3 (9.0-12.0) Seconds INR 1.0 (0.9-1.1) Sodium (136-145) mmol/L Potassium (3.5-5.1) mmol/L Chloride (98-107) mmol/L Carbon Dioxide (21-32) mmol/L Anion Gap (3-11) BUN (7-18) mg/dl Creatinine (0.6-1.4) mg/dl Est Cr Clr Drug Dosing Est GFR ( Amer) Est GFR (Non-Af Amer) BUN/Creatinine Ratio (10-20) Glucose (70-99) mg/dl POC Glucose 153 H (70-99) mg/dl Estimat Average Glucose mg/dl Hemoglobin A1c (4.5-5.6) % Calcium (8.5-10.1) mg/dl Total Bilirubin (0.2-1) mg/dl AST (15-37) U/L ALT (12-78) U/L Alkaline Phosphatase (45-117) U/L Total Protein (6.4-8.2) gm/dl Albumin (3.4-5.0) gm/dl Globulin (2.5-4.0) gm/dl Albumin/Globulin Ratio (0.9-2) Lipase (73-393) U/L Urine Color Urine Appearance (Clear) Urine pH (4.5-7.5) Ur Specific [place] (1.000-1.030) Urine Protein (Negative) Urine Glucose (UA) (Negative) Urine Ketones (Negative) Urine Blood (Negative) Urine Nitrite (Negative) Urine Bilirubin (Negative) Urine Urobilinogen (Negative) Ur Leukocyte Esterase (Negative) Urine RBC (0-4) /hpf Urine WBC (0-5) /hpf Ur Epithelial Cells (0-5) /lpf Urine Bacteria (Negative) Hepatitis C Ab Screen Neg (Neg) Blood Type Antibody Screen 08/07/19 08/07/19 08/07/19 Range/Units 15:42 15:42 15:24 WBC 5.18 (4.8-10.8) K/uL RBC 4.49 L (4.7-6.1) M/uL Hgb 10.2 L (14.0-18.0) g/dL Hct 32.0 L (42-52) % MCV 71.3 L (80-100) fL MCH 22.7 L (25-34) pg MCHC 31.9 L (32-36) g/dL RDW Std Deviation 43.2 (36.4-46.3) fL RDW Coeff of Bony 16.7 H (11.5-14.5) % Plt Count 206 (130-400) K/uL Immature Gran % (Auto) 0.2 % Neut % (Auto) 61.6 % Lymph % (Auto) 30.1 % [place] % (Auto) 7.1 % Eos % (Auto) 0.6 % Baso % (Auto) 0.4 % Immature Gran # (Auto) 0.01 (0.00-0.02) K/uL Neut # (Auto) 3.19 (1.4-6.5) K/uL Lymph # (Auto) 1.56 (1.2-3.4) K/uL [place] # (Auto) 0.37 (0.11-0.59) K/uL Eos # (Auto) 0.03 (0-0.5) K/uL Baso # (Auto) 0.02 (0-0.2) K/uL PT (9.0-12.0) Seconds INR (0.9-1.1) Sodium 141 (136-145) mmol/L Potassium 3.3 L (3.5-5.1) mmol/L Chloride 105 (98-107) mmol/L Carbon Dioxide 27 (21-32) mmol/L Anion Gap 9.0 (3-11) BUN 17 (7-18) mg/dl Creatinine 1.15 (0.6-1.4) mg/dl Est Cr Clr Drug Dosing Not Reportable Est GFR ( Amer) 79.2 Est GFR (Non-Af Amer) 68.3 BUN/Creatinine Ratio 14.6 (10-20) Glucose 233 H (70-99) mg/dl POC Glucose (70-99) mg/dl Estimat Average Glucose mg/dl Hemoglobin A1c (4.5-5.6) % Calcium 8.8 (8.5-10.1) mg/dl Total Bilirubin 0.2 (0.2-1) mg/dl AST 9 L (15-37) U/L ALT 24 (12-78) U/L Alkaline Phosphatase 70 (45-117) U/L Total Protein 7.6 (6.4-8.2) gm/dl Albumin 3.4 (3.4-5.0) gm/dl Globulin 4.2 H (2.5-4.0) gm/dl Albumin/Globulin Ratio 0.8 L (0.9-2) Lipase 95 (73-393) U/L Urine Color Red Urine Appearance Turbid A (Clear) Urine pH 7.5 (4.5-7.5) Ur Specific [place] 1.025 (1.000-1.030) Urine Protein 3+ H (Negative) Urine Glucose (UA) 1+ H (Negative) Urine Ketones Negative (Negative) Urine Blood 3+ H (Negative) Urine Nitrite Negative (Negative) Urine Bilirubin Negative (Negative) Urine Urobilinogen Negative (Negative) Ur Leukocyte Esterase Negative (Negative) Urine RBC >30 H (0-4) /hpf Urine WBC 5-10 H (0-5) /hpf Ur Epithelial Cells 0-5 (0-5) /lpf Urine Bacteria Negative (Negative) Hepatitis C Ab Screen (Neg) Blood Type Antibody Screen Diagnostic Findings CT abdomen/pelvis IMPRESSION: 1. Marked prostamegaly with urinary bladder distention and wall thickening suggestive of chronic bladder outlet obstruction. Additionally, there is a large heterogeneous intraluminal mass of the urinary bladder which measures over 9 cm in greatest dimension. Urothelial malignancy versus intraluminal hematoma are the primary differential considerations. Correlation with urology consultation and cystoscopy recommended. 2. No urolith or obstructive uropathy. 3. 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 Additionally, there is mild nonspecific periaortic inflammatory stranding possibly reflecting underlying aortitis. 4. No bowel obstruction or bowel wall thickening. Normal appendix. Medications Administered Current Inpatient Medications Acetaminophen (Tylenol) 650 mg PO Q4H PRN PRN Reason: pain/fever Stop: 09/06/19 21:50 Atorvastatin Calcium (Lipitor) 80 mg PO DAILY RAUL Stop: 09/07/19 08:59 Dextrose (Dextrose 50%) 25 - 50 ml IV UD PRN; Protocol PRN Reason: Hypoglycemia Protocol Stop: 09/06/19 21:50 Glucagon (Glucagen) 1 mg SQ UD PRN; Protocol PRN Reason: Hypoglycemia Protocol Stop: 09/06/19 21:50 Glucose (Dex4 Glucose) 4 - 8 tabs PO UD PRN; Protocol PRN Reason: Hypoglycemia Protocol Stop: 09/06/19 21:50 Glucose (Glucose 40%) 15 - 30 gm PO UD PRN; Protocol PRN Reason: Hypoglycemia Protocol Stop: 09/06/19 21:50 Ceftriaxone Sodium 2,000 mg/ (Dextrose) 70 mls @ 100 mls/hr IV Q24H RAUL; Protocol Stop: 08/12/19 22:29 Last Infusion: 08/07/19 23:28 Dose: Infused Documented by: Sodium Chloride (Nss 1000ml) 1,000 mls @ 80 mls/hr IV .[id number] RAUL Stop: 08/08/19 11:29 Last Admin: 08/07/19 22:41 Dose: 80 mls/hr Documented by: Insulin Aspart (Novolog Flexpen) 0 units SC Q6 RAUL Stop: 09/07/19 05:59 Last Admin: 08/08/19 06:51 Dose: Not Given Documented by: Insulin Glargine (Lantus Solostar Pen) 0 - 12 units SC BID RAUL Stop: 09/06/19 21:50 Last Admin: 08/08/19 08:27 Dose: Not Given Documented by: Latanoprost (Xalatan Oph) 1 drops OP PM RAUL Stop: 09/06/19 21:50 Last Admin: 08/07/19 22:33 Dose: 1 drops Documented by: Miscellaneous (Carbohydrates For Hypoglycemia) 15 - 30 gm PO UD PRN PRN Reason: Hypoglycemia Protocol Stop: 09/06/19 21:50 Ondansetron HCl (Zofran) 4 mg IV Q6H PRN PRN Reason: Nausea Stop: 09/06/19 21:50 Terazosin HCl (Hytrin) 10 mg PO HS RAUL Stop: 09/06/19 21:50 Last Admin: 08/07/19 22:32 Dose: 10 mg Documented by:
[2019-08-08] MEDS: ATORVASTATIN 40 MG TAB PO SCH (08:54)
[2019-08-08] MEDS ORDERED: PHARMACY GLYCEMIC MGMT CONSULT PRN (10:34)
--- NOTE | 2019-08-08 10:48 | Pharmacy Report ---
Glycemic Control Consultation - Date of Service August 08, 2019 - Scope Scope: Glycemic Pharmacist consulted for glycemic control and to write orders per [facility] inpatient glycemic control protocol. - Objective Weight: 101.3 kg Accuchecks BSG (last 24hrs): 08/07/19 08/07/19 08/08/19 15:42 22:05 05:38 Glucose 233 H 75 POC Glucose 153 H 08/08/19 08/08/19 06:50 07:40 Glucose POC Glucose 109 H 107 H Laboratory Data (last 24hrs): 08/07/19 08/08/19 15:42 05:38 Potassium 3.3 L 3.2 L Carbon Dioxide 27 29 Anion Gap 9.0 5.0 Creatinine 1.15 0.67 D Est Cr Clr Drug Dosing Not Reportable 147.1 HbA1c: Hemoglobin A1c 12.4 % (4.5-5.6) H 08/08/19 05:38 - Recent Pertinent Medications Outpatient Anti-diabetic Regimen: * Novolin 70/30 - 5 units BIDM * Glipizide 10 mg PO BIDM * Metformin 1000 mg PO BIDM * A1c = 12.4 % (08/08/19) The patient is currently receiving: * Basal insulin: Lantus scale (0-12 units) BID * Correctional Insulin: Novolog Correction per scale ACHS Goal Range: Low 120 mg/dL - High 160 mg/dL Correction Factor: 30 mg/dL/unit * Prandial insulin: Per carb ratio of 1 unit per 10 grams CHO consumed Risk Factors for Insulin Resistance: * Infection: ceftriaxone - UTI * IVF: NSS @80 mL/hr * Diet: T2DM - Assessment & Plan Assessment & Plan: ASSESSMENT: * HÉCTOR is a 63 year old male admitted for hematuria secondary to bladder mass * Plan is for cystoscopy tomorrow - will follow (currently ordered NPO after midnight 08/08) * Pharmacy consulted this morning for further glycemic management * BSGs reasonably well controlled thus far - will make minor changes only * Currently receiving ceftriaxone 2 g IV daily for UTI PLAN FOR INPATIENT GLYCEMIC CONTROL: * Holding outpatient oral diabetes medications * Basal insulin * Lantus scale HS x 1 (see EHR for details) * Will reassess basal needs tomorrow morning in light of possible cystoscopy * Bolus insulin * NovoLog per scale ACHS or Q6hrs while NPO * Goal Range: Low 120 mg/dL - High 160 mg/dL * Correction Factor: 30 mg/dL/unit * Nutritional / Prandial insulin per carb ratio of 1 unit per 10 grams CHO consumed * Please note that the plan above was derived based on current level of insulin resistance and hospital stress. These recommendations are appropriate for inpatient admission only. Plan of care upon discharge will need to be reassessed to avoid potential outpatient hypo/hyperglycemia. Thank you.
[2019-08-08] MEDS: SODIUM CHLORIDE 0.9% 1000ML 1,000 ML IV SCH (10:59)
[2019-08-08] MEDS: INSULIN ASPART 100 UNITS/ML 3 ML PEN SC SCH ×3 (13:04→21:11)
[2019-08-08] MEDS ORDERED: INSULIN GLARGINE SOLOSTAR 100 UNITS/ML 3 ML PEN SC SCH (21:00)
[2019-08-08] MEDS: TERAZOSIN HCL 5 MG CAP PO SCH (21:08)
[2019-08-08] MEDS: LATANOPROST 0.005% OP SOLN 2.5 ML BTL OP SCH (21:11)
[2019-08-08] MEDS: cefTRIAXone SODIUM 2,000 MG in DEXTROSE 5% 50 ML IV SCH (22:43)
[2019-08-09] MEDS ORDERED: Nursing to Pharmacy Communication ONE ×2 (03:36→17:37)
[2019-08-09] MEDS: INSULIN ASPART 100 UNITS/ML 3 ML PEN SC SCH ×4 (06:03→20:31)
--- NOTE | 2019-08-09 07:50 | Hospitalist Progress Note ---
Date of Service August 09, 2019 Assessment & Plan (1) Hematuria: (2) Prostate mass: (3) Bladder mass: Pt is 63 y/o M with PMH CVA, HTN, HLD, BPH, anemia, DM II who presented to ER with complaint of hematuria x1 week. Then also difficulty urinating and suprapubic pressure. Denies F/C, N/V In ER pt afebrile, P: 92, R: 20, BP: 88/64 up to 125/72, 100% on RA. No leukocytosis, H/H: 10.2/32, BUN: 17, Cr: 1.15, GFR:79, UA: 3+ protein, 3+blood, >30 RBC, no bacteria CT ABD/PELVIS:Marked prostamegaly with urinary bladder distention and wall thickening suggestive of chronic bladder outlet obstruction. Additionally, there is a large heterogeneous intraluminal mass of the urinary bladder which measures over 9 cm in greatest dimension. Urothelial malignancy versus intraluminal hematoma are the primary differential considerations. No urolith or obstructive uropathy. -In ER given 1L NSS -In ER pt reports was able to urinate and reports passing large clot -Bladder scan prn -cont. IV Rocephin - Urology consulted for poss. bladder mass, pt underwent cystoscopy today 08/09/2019 - Findings on cystoscopy : Extremely Large Prostate with obstruction due to very large mass possibly an extremely large median lobe. Severe bleeding prostatic varicosity. - Pt is s/p Transurethral Resection Prostate Mass With Clot Evacuation And Fulguration of large prostatic varicosities - Prostate mass biopsy obtained - pathology pending -cont. monitor CBC, BMP in am (4) Hypokalemia: K: 3.3 on admission -Replace and monitor (5) Anemia: Hgb:10.2 on admission It is reported pt with Hgb: 11.5 in 10/2018 at [facility] -then down to 8.4 but actually above 9 this AM (08/08) -No chest pain, dizziness, shortness of breath, lightheadedness -Monitor H&H (6) Diabetes mellitus, type II: Type II Diabtes Mellitus with ocean transportation intermediary current use of insulin -Hold metformin, glipizide, home insulin -NovoLog, Lantus sliding scale per protocol -Hb A1c 12.4% -family life educator consulted as well as pharmacy glycemic management -Seems like patient was started on insulin 70/30 before his hospitalization -May need further adjustment of insulin prior to discharge (7) CVA (cerebral vascular accident): No residual deficit -Hold aspirin for now (8) HTN (hypertension): Initially hypotensive in ER with BP 88/64 up to 125/72 1 L NSS -Hold lisinopril, amlodipine, HCTZ for now and monitor BP closely -Currently normotensive (9) BPH (benign prostatic hyperplasia): -Continue terazosin (10) HLD (hyperlipidemia): -Continue atorvastatin DVT Prophylaxis -SCDs Full Code as per discussion with pt Follows with Dr Alex at [facility] for routine care Admission and Anticipated Discharge Date Admission Date: August 08, 2019 Subjective No acute events overnight. Patient is lying in bed, currently s/p urologic procedure, which he tolerated well. Hgb stable (actually increased) today. Denies any fevers, chills, chest pain, shortness of breath, abdominal pain. Denies any chest pain, dizziness, lightheadedness. Discussed findings per urology note. Pt currently alert and oriented, states that he is hungry, no other complaints at this time. Review of Systems Review of Systems: All systems reviewed & are unremarkable except as noted in HPI & below Constitutional: no fever and no chills Respiratory: no cough and no dyspnea Cardiovascular: no chest pain and no palpitations Gastrointestinal: no abdominal pain, no nausea and no vomiting Physical Exam Physical Exam: General: WD/WN male lying in bed, in no acute distress Head: normocephalic, atraumatic Eyes: PERRL, EOM's intact, conjunctiva non-injected, anicteric ENT: normal inspection external ears, nose, mucous membranes moist Neck: supple, trachea midline Lungs: clear, no respiratory distress, no wheezing/rhonchi/rales CV: RRR, no pretibial edema Abd: +healed scar to right side of abdomen, normal BS, soft, non-tender Ext: no cyanosis, no calf tenderness, moves extremities spontaneously Neuro: A&O x 3, no dysarthria, no facial asymmetry, no focal deficits noted, moves extremity spontaneously Psych: normal affect Skin: warm, dry Results & Data Results & Data ([facility]) Vital Signs (Past 12 Hours) Vital Signs Temp Pulse Resp BP Pulse Ox 08/09/19 07:46 36.8 C 71 18 147/85 H 100 08/08/19 23:16 36.9 C 66 18 163/83 H 100 Laboratory Results 08/09/19 08/09/19 08/09/19 Range/Units 07:49 07:49 05:41 WBC 4.78 L (4.8-10.8) K/uL RBC 3.98 L (4.7-6.1) M/uL Hgb 9.1 L (14.0-18.0) g/dL Hct 28.5 L (42-52) % MCV 71.6 L (80-100) fL MCH 22.9 L (25-34) pg MCHC 31.9 L (32-36) g/dL RDW Std Deviation 44.0 (36.4-46.3) fL RDW Coeff of Bony 17.0 H (11.5-14.5) % Plt Count 205 (130-400) K/uL Sodium 143 (136-145) mmol/L Potassium 3.7 D (3.5-5.1) mmol/L Chloride 111 H (98-107) mmol/L Carbon Dioxide 24 (21-32) mmol/L Anion Gap 8.0 (3-11) BUN 9 (7-18) mg/dl Creatinine 0.67 (0.6-1.4) mg/dl Est Cr Clr Drug Dosing 147.1 ml/min Est GFR ( Amer) 120.2 Est GFR (Non-Af Amer) 103.7 BUN/Creatinine Ratio 12.9 (10-20) Glucose 136 H (70-99) mg/dl POC Glucose 140 H (70-99) mg/dl Calcium 8.6 (8.5-10.1) mg/dl Phosphorus 2.8 (2.5-4.9) mg/dl Magnesium 2.1 (1.8-2.4) mg/dl 08/08/19 08/08/19 08/08/19 Range/Units 20:41 16:27 11:37 WBC (4.8-10.8) K/uL RBC (4.7-6.1) M/uL Hgb (14.0-18.0) g/dL Hct (42-52) % MCV (80-100) fL MCH (25-34) pg MCHC (32-36) g/dL RDW Std Deviation (36.4-46.3) fL RDW Coeff of Bony (11.5-14.5) % Plt Count (130-400) K/uL Sodium (136-145) mmol/L Potassium (3.5-5.1) mmol/L Chloride (98-107) mmol/L Carbon Dioxide (21-32) mmol/L Anion Gap (3-11) BUN (7-18) mg/dl Creatinine (0.6-1.4) mg/dl Est Cr Clr Drug Dosing ml/min Est GFR ( Amer) Est GFR (Non-Af Amer) BUN/Creatinine Ratio (10-20) Glucose (70-99) mg/dl POC Glucose 215 H 149 H 174 H (70-99) mg/dl Calcium (8.5-10.1) mg/dl Phosphorus (2.5-4.9) mg/dl Magnesium (1.8-2.4) mg/dl Medications Administered Current Inpatient Medications Acetaminophen (Tylenol) 650 mg PO Q4H PRN PRN Reason: pain/fever Stop: 09/06/19 21:50 Atorvastatin Calcium (Lipitor) 80 mg PO DAILY RAUL Stop: 09/07/19 08:59 Last Admin: 08/09/19 08:37 Dose: 80 mg Documented by: Dextrose (Dextrose 50%) 25 - 50 ml IV UD PRN; Protocol PRN Reason: Hypoglycemia Protocol Stop: 09/06/19 21:50 Glucagon (Glucagen) 1 mg SQ UD PRN; Protocol PRN Reason: Hypoglycemia Protocol Stop: 09/06/19 21:50 Glucose (Dex4 Glucose) 4 - 8 tabs PO UD PRN; Protocol PRN Reason: Hypoglycemia Protocol Stop: 09/06/19 21:50 Glucose (Glucose 40%) 15 - 30 gm PO UD PRN; Protocol PRN Reason: Hypoglycemia Protocol Stop: 09/06/19 21:50 Ceftriaxone Sodium 2,000 mg/ (Dextrose) 70 mls @ 100 mls/hr IV Q24H RAUL; Protocol Stop: 08/12/19 22:29 Last Infusion: 08/08/19 23:27 Dose: Infused Documented by: Insulin Aspart (Novolog Flexpen) 0 units SC Q6 RAUL Stop: 09/08/19 05:59 Last Admin: 08/09/19 06:03 Dose: Not Given Documented by: Latanoprost (Xalatan Oph) 1 drops OP PM RAUL Stop: 09/06/19 21:50 Last Admin: 08/08/19 21:11 Dose: 1 drops Documented by: Miscellaneous (Carbohydrates For Hypoglycemia) 15 - 30 gm PO UD PRN PRN Reason: Hypoglycemia Protocol Stop: 09/06/19 21:50 Miscellaneous Information (Consult Glycemic Management Pharm[facility]) 1 ea N/A UD PRN PRN Reason: Consult Stop: 09/07/19 10:33 Ondansetron HCl (Zofran) 4 mg IV Q6H PRN PRN Reason: Nausea Stop: 09/06/19 21:50 Terazosin HCl (Hytrin) 10 mg PO HS RAUL Stop: 09/06/19 21:50 Last Admin: 08/08/19 21:08 Dose: 10 mg Documented by:
[2019-08-09 08:17] LABS: Hematocrit (blood only) 28.5 % (42-52); Hemoglobin 9.1 g/dL (14.0-18.0); Mean Corpuscular Hemoglobin 22.9 pg (25-34); Mean Corpuscular Hgb Conc 31.9 g/dL (32-36); Mean Corpuscular Volume 71.6 fL (80-100); Platelet Count 205 K/uL (130-400); Red Blood Count 3.98 M/uL (4.7-6.1); White Blood Count 4.78 K/uL (4.8-10.8)
[2019-08-09] MEDS: ATORVASTATIN 40 MG TAB PO SCH (08:37)
[2019-08-09 08:44] LABS: BUN Creatinine Ratio 12.9 (10-20); Calcium 8.6 mg/dl (8.5-10.1); Creatinine Clr Calc Pharmacy 147.1 ml/min; Est GFR (African American) 120.2; Est GFR (Non-African American) 103.7; Magnesium 2.1 mg/dl (1.8-2.4); Phosphorus 2.8 mg/dl (2.5-4.9); Potassium 3.7 mmol/L (3.5-5.1)
--- NOTE | 2019-08-09 13:09 | History & Physical Bridge Note ---
Date of Service August 09, 2019 History & Physical Bridge Note I have examined the patient, reviewed the History & Physical and in the interval since the performance of the History & Physical I have noted the following changes of clinical significance: no changes noted Will set up for cystoscopy with clot evacuation and possible resection of tumor. Risks and benefits discussed at length for procedure. These include bleeding, infection, injury to surrounding tissues or organs, and risks associated with anesthesia. Patient states understanding and agrees to proceed. Will sign consent and schedule.
--- NOTE | 2019-08-09 13:41 | Pharmacy Report ---
Pharmacy Glycemic Short Note 2 - Date of Service August 09, 2019 - Glycemic Short BSG Results (Last 24 hours): 08/08/19 08/08/19 08/09/19 16:27 20:41 05:41 Glucose POC Glucose 149 H 215 H 140 H 08/09/19 08/09/19 07:49 12:03 Glucose 136 H POC Glucose 137 H OUTPATIENT ANTIDIABETIC REGIMEN: * Novolin 70/30 - 5 units BIDM * Glipizide 10 mg PO BIDM * Metformin 1000 mg PO BIDM * A1c = 12.4 % (08/08/19) INPATIENT INSULIN REGIMEN AND CAUSES OF INSULIN RESISTANCE: ASSESSMENT: * Mr. Paredes received 30 units of insulin yesterday * Has been NPO today for planned cystoscopy * BSGs stable so far today, indicating that current basal dose is appropriate PLAN FOR INPATIENT GLYCEMIC CONTROL: * Hold outpatient oral diabetes medications * Basal insulin - continue same dose but adjust scale for lower dose if BSG decreases * 10-15 units qHS * Bolus insulin - no change * NovoLog per scale ACHS or Q6hrs while NPO * Goal Range: Low 110 mg/dL - High 140 mg/dL * Correction Factor: 30 mg/dL/unit * Nutritional / Prandial insulin per carb ratio of 1 unit per 10 grams CHO consumed
[2019-08-09] MEDS ORDERED: MIDAZOLAM HCL 1 MG/ML 2ML VIAL ONE (14:16)
[2019-08-09] MEDS ORDERED: LIDOCAINE HCL 2% 2 ML VIAL/AMP(20MG/ML) INFIL ONE (14:16)
[2019-08-09] MEDS ORDERED: fentaNYL citrate 100 MCG/2 ML VIAL ONE (14:16)
[2019-08-09] MEDS ORDERED: PROPOFOL IV EMULSION 10 MG/ML 20 ML VIAL IV ONE ×2 (14:16→15:37)
--- NOTE | 2019-08-09 14:32 | Anesthesiology Consultation ---
Date of Service August 09, 2019 Assessment & Plan (1) Encounter for pre-operative examination: Chart Review Chart Review: Acceptable Risk for Surgery and Patient NOT seen in Pre Admission Testing Consults Requested none ASA ASA3 Proposed Anesthesia Anesthesia Type: MAC Risk / Benefits Reviewed With: PT / POA / Parent / Guardian, Accepts Plan and Informed Consent Obtained History Surgery Operation Date: 08/09/19 14:45 Proposed Procedures p Transurethral Resection Bladder Tumor With Clot Evacuation And Fulguration - Ian Olmstead, Height/Weight Height: 6 ft 2 in Weight: 101.3 kg Allergies Allergy/AdvReac Type Severity Reaction Status Date / Time No Known Allergies Allergy Verified 08/09/19 13:11 Medications Home Medications Medication Instructions Recorded Confirmed Last Taken amlodipine 10 mg PO DAILY 08/07/19 08/07/19 08/07/19 11:00 aspirin [Aspir-81] 81 mg PO DAILY 08/07/19 08/07/19 08/07/19 11:00 atorvastatin 80 mg PO DAILY 08/07/19 08/07/19 08/07/19 11:00 glipizide 10 mg PO BID 08/07/19 08/07/19 08/07/19 11:00 hydrochlorothiazide 25 mg PO DAILY 08/07/19 08/07/19 08/07/19 11:00 insulin NPH and regular human 5 unit SUBCUT BID 08/07/19 08/07/19 08/07/19 06:30 [Novolin 70/30 U-100 Insulin] 5 UNITS latanoprost 1 drp OPHTHALMIC (EYE) PM 08/07/19 08/07/19 Unknown lisinopril 20 mg PO DAILY 08/07/19 08/07/19 08/07/19 metformin 1,000 mg PO BID 08/07/19 08/07/19 08/07/19 terazosin 10 mg PO HS 08/07/19 08/07/19 Unknown Active Medications Generic Name Dose Route Start Last Admin Trade Name Freq PRN Reason Stop Dose Admin Atorvastatin Calcium 80 mg 08/08/19 09:00 08/09/19 08:37 Lipitor PO 09/07/19 08:59 80 mg DAILY RAUL Administration Ceftriaxone Sodium 2,000 mg/ 70 mls @ 100 mls/hr 08/07/19 22:30 08/08/19 23:27 Dextrose IV 08/12/19 22:29 Infused Q24H RAUL Infusion Protocol Insulin Aspart 0 units 08/09/19 06:00 08/09/19 12:23 Novolog Flexpen SC 09/08/19 05:59 Not Given Q6 RAUL Latanoprost 1 drops 08/07/19 21:51 08/08/19 21:11 Xalatan Oph OP 09/06/19 21:50 1 drops PM RAUL Administration Terazosin HCl 10 mg 08/07/19 21:51 08/08/19 21:08 Hytrin PO 09/06/19 21:50 10 mg HS RAUL Administration NPO Date Last Intake of Fluids: 08/08/19 Time Last Intake of Fluids: 18:00 Date Last Intake of Solids: 08/08/19 Time Last Intake of Solids: 18:00 Past Medical History Medical History Anemia BPH (benign prostatic hyperplasia) CVA (cerebral vascular accident) Diabetes mellitus, type II HLD (hyperlipidemia) HTN (hypertension) Exercise / Class Metabolic Activity III < 4 Walking/Shop/Light housework Past Family History Family History Denies family history of Cancer Past Surgical History Surgical History No pertinent past surgical history Past Anesthesia History No Hx of Anesthesia Complications History of PONV No Hx of PONV Social History Smoking Status: Former smoker Do You Dip or Chew Tobacco: No Hx Alcohol Use: No Hx Substance Use: No Review of Systems Negative for chest pain or shortness of breath. Patient denies active symptoms of GERD. Physical Exam Vital Signs Last Vital Signs Temp 36.8 C 08/09/19 13:08 Pulse 62 08/09/19 13:08 Resp 18 08/09/19 13:08 BP 156/79 H 08/09/19 13:08 Pulse Ox 100 08/09/19 13:08 Constitutional not obese ENMT Mouth: no TMJ abnormality and oral opening not small Thyromental Distance: > or= 3.5 Finger Breadths Mallampati Class: III Mouth / Teeth: 1. Chipped Neck normal visual inspection; neck extension not limited Respiratory normal respiratory effort Auscultation: lungs clear to auscultation bilaterally Cardiovascular Rate/Rhythm: regular rate and regular rhythm Heart Sounds: no murmur Neurologic moves all extremities Psychiatric Orientation: alert and oriented x 3 Testing Laboratory Results 08/09/19 07:49 08/09/19 07:49 PT 10.3 Seconds (9.0-12.0) 08/07/19 15:42 INR 1.0 (0.9-1.1) 08/07/19 15:42 Hemoglobin A1c 12.4 % (4.5-5.6) H 08/08/19 05:38 Urine Color Red 08/07/19 15:24 Urine Appearance Turbid (Clear) A 08/07/19 15:24 Urine pH 7.5 (4.5-7.5) 08/07/19 15:24 Ur Specific [place] 1.025 (1.000-1.030) 08/07/19 15:24 Urine Protein 3+ (Negative) H 08/07/19 15:24 Urine Glucose (UA) 1+ (Negative) H 08/07/19 15:24 Urine Ketones Negative (Negative) 08/07/19 15:24 Urine Nitrite Negative (Negative) 08/07/19 15:24 Ur Leukocyte Esterase Negative (Negative) 08/07/19 15:24 Urine RBC >30 /hpf (0-4) H 08/07/19 15:24 Urine WBC 5-10 /hpf (0-5) H 08/07/19 15:24 Ur Epithelial Cells 0-5 /lpf (0-5) 08/07/19 15:24 Blood Type A Positive 08/08/19 05:38 Antibody Screen NEGATIVE 08/08/19 05:38 08/09/19 08/09/19 12:03 05:41 POC Glucose 137 H 140 H
[2019-08-09] MEDS ORDERED: ePHEDrine sulfate 50 MG/ML AMP IV PRN (14:37)
[2019-08-09] MEDS ORDERED: ONDANSETRON INJ 2 MG/ML 2 ML VIAL IV PRN (14:37)
[2019-08-09] MEDS ORDERED: ATROPINE SULFATE 0.1 MG/ML 10ML SYR IV PRN (14:37)
[2019-08-09] MEDS ORDERED: CEFAZOLIN 250 MG/ML 1 GM VIAL ONE (15:33)
--- NOTE | 2019-08-09 16:02 | Operative Report ---
PG Post Operative Report Pre & Post Diagnosis Operation Date: 08/09/19 14:45 Pre-Op Diagnosis: Hematuria, Bladder Mass Post-Op Diagnosis: Hematuria, Prostate Mass I identified the patient and participated in the time-out.: Yes Procedure Operation Date: 08/09/19 14:45 Actual Procedures p Transurethral Resection Prostate Mass With Clot Evacuation And Fulguration of large prostatic varicosities(Not Applicable) - Ian Olmstead, Surgeon Ian Olmstead, II, DO [employer] Product Manager None Estimated Blood Loss 10 Findings Consistent with Post-Op Diagnosis Extremely Large Prostate with obstruction due to very large mass possibly an extremely large median lobe. Severe bleeding prostatic varicosity. Specimens Prostate Mass Drains 22Fr Catheter Anesthesia Type MAC Complications none Disposition Disposition: Recovery Room Indications Patient with a possible bladder mass and episodes of gross hematuria.Risks and benefits discussed at length. Description of Procedure Patient was consented and brought back to the operating room. Patient was placed under anesthesia in the supine position and moved to the dorsal lithotomy position. Patient was prepped and draped in the regular sterile fashion. A time out was completed. A 30degree Cystoscope was placed into the bladder and the entire bladder was examined. Immediately upon entering the prostatic urethra, a massive lobe of prostate was noted with severe projection into the bladder and near complete obstruction. Severe prostatic varicosities were note with significant bleeding. The UO's were able to be identified at the base of the bladder which was severely obscured due to the massive prostatic mass. The bladder neck, trigone, dome, and the other important landmarks were identified. Large amount of clot within the base was evacuated. The prostatic urethra and large lobes/adenoma was assessed and the veru and bladder neck identified and area/size was assessed. The resection scope was placed and the fine bipolar loop was selected. The prostatic varicosities were fulgurated and bleeding controlled. At approx the 6-7 oclock position a significant bleeding area was noted. This was resected and sent for pathologic analysis. The resection bed and any bleeding areas were fulgurated/cauterized and the entire area inspected. All bleeding was controlled. The bladder was inspected a final time. The extreme size of the prostatic mass did make full inspection of the bladder difficult. With the limited view that was available, there was not a bladder mass was discovered. The bladder was emptied and irrigated. All specimen and debris was removed. The scope was removed with the bladder partially full. A Wire was placed to allow the afognak tip catheter to be placed and balloon elevated to 20cc. This was easily irrigated. The patient was cleaned, aroused from anesthesia, and transferred to the pacu in stable condition having tolerated the procedure well with no complications. I was present and participated in all aspects of the procedure. The patient will be monitored in the PACU until transferred. I attest to the content of the Intraoperative Record and any orders documented therein. Any exceptions are noted below.
[2019-08-09] MEDS: fentaNYL citrate 100 MCG/2 ML VIAL IV PRN ×2 (16:29→16:34)
--- NOTE | 2019-08-09 17:42 | Anesthesiology Progress Note ---
Date of Service August 09, 2019 Anesthesia Post Procedure Vital Signs Vital Signs: Temp Pulse Pulse Resp BP Pulse Ox 08/09/19 16:50 53 L 12 148/84 H 100 08/09/19 16:45 36.2 C L 52 L 12 158/83 H 100 08/09/19 16:35 61 17 166/84 H 100 08/09/19 16:25 67 13 177/100 H 100 08/09/19 16:15 68 19 156/91 H 98 08/09/19 16:06 36.0 C L 80 18 155/98 H 100 08/09/19 13:08 36.8 C 62 18 156/79 H 100 08/09/19 07:46 36.8 C 71 18 147/85 H 100 08/08/19 23:16 36.9 C 66 18 163/83 H 100 Pain Intensity Lower Medial Abdomen: Pain Intensity: 5 Transfer of Care Handoff Completed per policy Notes Mental Status: alert / awake / arousable Patient Amnestic to Procedure: Yes Nausea / Vomiting: adequately controlled Pain: adequately controlled Airway Patency, RR, SpO2: stable & adequate BP & HR: stable & adequate Hydration State: stable & adequate Anesthetic Complications: no major complications apparent
[2019-08-09] MEDS: TERAZOSIN HCL 5 MG CAP PO SCH (20:28)
[2019-08-09] MEDS: LATANOPROST 0.005% OP SOLN 2.5 ML BTL OP SCH (20:29)
[2019-08-09] MEDS ORDERED: TRAMADOL HCL 50 MG TABLET PO PRN (20:54)
[2019-08-09] MEDS ORDERED: MoRPHine SULFATE 4 MG/ML 1 ML CARP\\VIAL IV PRN (20:54)
[2019-08-09] MEDS ORDERED: PROMETHAZINE HCL 12.5 MG in SODIUM CHLORIDE 0.9% 50 ML IV PRN (20:54)
[2019-08-09] MEDS ORDERED: MoRPHine SULFATE 4 MG/ML 1 ML CARP\\VIAL ONE (20:59)
[2019-08-09] MEDS ORDERED: INSULIN GLARGINE SOLOSTAR 100 UNITS/ML 3 ML PEN SC SCH (21:00)
[2019-08-09] MEDS: cefTRIAXone SODIUM 2,000 MG in DEXTROSE 5% 50 ML IV SCH (22:16)
[2019-08-10] MEDS ORDERED: LACTATED RINGER'S 1,000 ML IV ONE (03:51)
[2019-08-10] MEDS ORDERED: AMLODIPINE BESYLATE 5 MG TAB PO STA (07:36)
[2019-08-10] MEDS ORDERED: AMLODIPINE BESYLATE 5 MG TAB PO ONE (07:36)
[2019-08-10 07:57] LABS: Hematocrit (blood only) 27.3 % (42-52); Hemoglobin 8.9 g/dL (14.0-18.0); Mean Corpuscular Hemoglobin 23.4 pg (25-34); Mean Corpuscular Hgb Conc 32.6 g/dL (32-36); Mean Corpuscular Volume 71.8 fL (80-100); Platelet Count 196 K/uL (130-400); RDW Coefficient of Variation 16.9 % (11.5-14.5); RDW Standard Deviation 44.5 fL (36.4-46.3); White Blood Count 5.62 K/uL (4.8-10.8)
[2019-08-10] MEDS: ATORVASTATIN 40 MG TAB PO SCH (08:02)
[2019-08-10] MEDS: INSULIN ASPART 100 UNITS/ML 3 ML PEN SC SCH ×3 (08:04→17:48)
--- NOTE | 2019-08-10 08:18 | Hospitalist Progress Note ---
Date of Service August 10, 2019 Assessment & Plan (1) Hematuria: (2) Prostate mass: (3) Bladder mass: Pt is 63 y/o M with PMH CVA, HTN, HLD, BPH, anemia, DM II who presented to ER with complaint of hematuria x1 week. Then also difficulty urinating and suprapubic pressure. Denies F/C, N/V In ER pt afebrile, P: 92, R: 20, BP: 88/64 up to 125/72, 100% on RA. No leukocytosis, H/H: 10.2/32, BUN: 17, Cr: 1.15, GFR:79, UA: 3+ protein, 3+blood, >30 RBC, no bacteria CT ABD/PELVIS:Marked prostamegaly with urinary bladder distention and wall thickening suggestive of chronic bladder outlet obstruction. Additionally, there is a large heterogeneous intraluminal mass of the urinary bladder which measures over 9 cm in greatest dimension. Urothelial malignancy versus intraluminal hematoma are the primary differential considerations. No urolith or obstructive uropathy. -In ER given 1L NSS -In ER pt reported that he was able to urinate and reported passing large clot -Bladder scan prn - IV Rocephin given - Urology consulted for poss. bladder mass, pt underwent cystoscopy on 08/09/2019 - Findings on cystoscopy : Extremely Large Prostate with obstruction due to very large mass possibly an extremely large median lobe. Severe bleeding prostatic varicosity. - Pt is s/p Transurethral Resection Prostate Mass With Clot Evacuation And Fulguration of large prostatic varicosities - Prostate mass biopsy obtained - pathology pending -Discussed with urologist, Dr. Olmstead, plan to keep Muñoz in for next week. Then, in about a week pt will need to follow-up with urology. At that time results of biopsy should be available and further plan can be discussed. Per Dr. Olmstead, patient can be discharged. (4) Hypokalemia: K: 3.3 on admission -Replace and monitor (5) Anemia: Hgb:10.2 on admission It is reported pt with Hgb: 11.5 in 10/2018 at [facility] -Hgb ~9 stable (08/09) -No chest pain, dizziness, shortness of breath, lightheadedness (6) Diabetes mellitus, type II: Type II Diabtes Mellitus with terminal operations supervisor current use of insulin -Hold metformin, glipizide, home insulin -NovoLog, Lantus sliding scale per protocol -Hb A1c 12.4% -family day care worker consulted as well as pharmacy glycemic management -Seems like patient was started on insulin 70/30 before his hospitalization -May need further adjustment of insulin prior to discharge On discharge, recommend increasing Novolin 70/30 to 10 units BID Discontinue glipizide d/t insulin initiation Continue metformin (7) CVA (cerebral vascular accident): No residual deficit -Held aspirin during the admission, restart on discharge (8) HTN (hypertension): Initially hypotensive in ER with BP 88/64 up to 125/72 1 L NSS -Held lisinopril, amlodipine, HCTZ on admission -Restarted amlodipine 10 mg daily -Currently normotensive, continue monitor blood pressure (9) BPH (benign prostatic hyperplasia): -Continue terazosin (10) HLD (hyperlipidemia): -Continue atorvastatin DVT Prophylaxis -SCDs Full Code as per discussion with pt Follows with Dr Alex at [facility] for routine care Admission and Anticipated Discharge Date Admission Date: August 08, 2019 Subjective No acute events overnight. Patient is lying in bed, he is s/p urologic procedure yesterday, which he tolerated well. Hgb stable. Denies any fevers, chills, chest pain, shortness of breath, abdominal pain. Denies any chest pain, dizziness, lightheadedness. Discussed with urologist, plan to keep the Muñoz in for a week or so. At that time he will be then seen for follow-up. Biopsy obtained, results pending. Patient aware of the plan. Review of Systems Review of Systems: All systems reviewed & are unremarkable except as noted in HPI & below Constitutional: no fever and no chills Respiratory: no cough and no dyspnea Cardiovascular: no chest pain and no palpitations Gastrointestinal: no abdominal pain, no nausea and no vomiting Genitourinary: + hematuria Physical Exam Physical Exam: General: WD/WN male lying in bed, in no acute distress Head: normocephalic, atraumatic Eyes: PERRL, EOM's intact, conjunctiva non-injected, anicteric ENT: normal inspection external ears, nose, mucous membranes moist Neck: supple, trachea midline Lungs: clear, no respiratory distress, no wheezing/rhonchi/rales CV: RRR, no pretibial edema Abd: +healed scar to right side of abdomen, normal BS, soft, non-tender Ext: no cyanosis, no calf tenderness, moves extremities spontaneously : Muñoz catheter in place, drains dark red urine Neuro: A&O x 3, no dysarthria, no facial asymmetry, no focal deficits noted, moves extremities spontaneously Psych: normal affect Skin: warm, dry Results & Data Results & Data ([facility]) Vital Signs (Past 12 Hours) Vital Signs Temp Pulse Resp BP Pulse Ox 08/10/19 08:01 65 168/95 H 08/10/19 07:14 36.6 C 70 20 196/90 H 99 08/09/19 23:41 37 C 73 20 122/68 98 Laboratory Results 08/10/19 08/10/19 08/10/19 Range/Units 07:47 07:33 07:33 WBC 5.62 (4.8-10.8) K/uL RBC 3.80 L (4.7-6.1) M/uL Hgb 8.9 L (14.0-18.0) g/dL Hct 27.3 L (42-52) % MCV 71.8 L (80-100) fL MCH 23.4 L (25-34) pg MCHC 32.6 (32-36) g/dL RDW Std Deviation 44.5 (36.4-46.3) fL RDW Coeff of Bony 16.9 H (11.5-14.5) % Plt Count 196 (130-400) K/uL Sodium Pending (136-145) mmol/L Potassium Pending (3.5-5.1) mmol/L Chloride Pending (98-107) mmol/L Carbon Dioxide Pending (21-32) mmol/L Anion Gap Pending (3-11) BUN Pending (7-18) mg/dl Creatinine Pending (0.6-1.4) mg/dl Est Cr Clr Drug Dosing Pending ml/min Est GFR ( Amer) Pending Est GFR (Non-Af Amer) Pending BUN/Creatinine Ratio Pending (10-20) Glucose Pending (70-99) mg/dl POC Glucose 127 H (70-99) mg/dl Calcium Pending (8.5-10.1) mg/dl Phosphorus (2.5-4.9) mg/dl Magnesium (1.8-2.4) mg/dl 08/09/19 08/09/19 08/09/19 Range/Units 20:21 18:11 16:09 WBC (4.8-10.8) K/uL RBC (4.7-6.1) M/uL Hgb (14.0-18.0) g/dL Hct (42-52) % MCV (80-100) fL MCH (25-34) pg MCHC (32-36) g/dL RDW Std Deviation (36.4-46.3) fL RDW Coeff of Bony (11.5-14.5) % Plt Count (130-400) K/uL Sodium (136-145) mmol/L Potassium (3.5-5.1) mmol/L Chloride (98-107) mmol/L Carbon Dioxide (21-32) mmol/L Anion Gap (3-11) BUN (7-18) mg/dl Creatinine (0.6-1.4) mg/dl Est Cr Clr Drug Dosing ml/min Est GFR ( Amer) Est GFR (Non-Af Amer) BUN/Creatinine Ratio (10-20) Glucose (70-99) mg/dl POC Glucose 208 H 125 H 129 H (70-99) mg/dl Calcium (8.5-10.1) mg/dl Phosphorus (2.5-4.9) mg/dl Magnesium (1.8-2.4) mg/dl 08/09/19 08/09/19 08/09/19 Range/Units 12:03 07:49 07:49 WBC 4.78 L (4.8-10.8) K/uL RBC 3.98 L (4.7-6.1) M/uL Hgb 9.1 L (14.0-18.0) g/dL Hct 28.5 L (42-52) % MCV 71.6 L (80-100) fL MCH 22.9 L (25-34) pg MCHC 31.9 L (32-36) g/dL RDW Std Deviation 44.0 (36.4-46.3) fL RDW Coeff of Bony 17.0 H (11.5-14.5) % Plt Count 205 (130-400) K/uL Sodium 143 (136-145) mmol/L Potassium 3.7 D (3.5-5.1) mmol/L Chloride 111 H (98-107) mmol/L Carbon Dioxide 24 (21-32) mmol/L Anion Gap 8.0 (3-11) BUN 9 (7-18) mg/dl Creatinine 0.67 (0.6-1.4) mg/dl Est Cr Clr Drug Dosing 147.1 ml/min Est GFR ( Amer) 120.2 Est GFR (Non-Af Amer) 103.7 BUN/Creatinine Ratio 12.9 (10-20) Glucose 136 H (70-99) mg/dl POC Glucose 137 H (70-99) mg/dl Calcium 8.6 (8.5-10.1) mg/dl Phosphorus 2.8 (2.5-4.9) mg/dl Magnesium 2.1 (1.8-2.4) mg/dl Medications Administered Current Inpatient Medications Acetaminophen (Tylenol) 650 mg PO Q4H PRN PRN Reason: pain/fever Stop: 09/06/19 21:50 Last Admin: 08/09/19 18:31 Dose: 650 mg Documented by: Atorvastatin Calcium (Lipitor) 80 mg PO DAILY RAUL Stop: 09/07/19 08:59 Last Admin: 08/10/19 08:02 Dose: 80 mg Documented by: Dextrose (Dextrose 50%) 25 - 50 ml IV UD PRN; Protocol PRN Reason: Hypoglycemia Protocol Stop: 09/06/19 21:50 Glucagon (Glucagen) 1 mg SQ UD PRN; Protocol PRN Reason: Hypoglycemia Protocol Stop: 09/06/19 21:50 Glucose (Dex4 Glucose) 4 - 8 tabs PO UD PRN; Protocol PRN Reason: Hypoglycemia Protocol Stop: 09/06/19 21:50 Glucose (Glucose 40%) 15 - 30 gm PO UD PRN; Protocol PRN Reason: Hypoglycemia Protocol Stop: 09/06/19 21:50 Ceftriaxone Sodium 2,000 mg/ (Dextrose) 70 mls @ 100 mls/hr IV Q24H RAUL; Protocol Stop: 08/12/19 22:29 Last Infusion: 08/09/19 22:58 Dose: Infused Documented by: Promethazine HCl 12.5 mg/ (Sodium Chloride) 50.5 mls @ 202 mls/hr IV Q6H PRN PRN Reason: Nausea And Vomiting Stop: 09/08/19 20:53 Lactated Ringer's (Lr) 1,000 mls @ 75 mls/hr IV .[id number] ONE Stop: 08/10/19 17:10 Last Admin: 08/10/19 04:59 Dose: 75 mls/hr Documented by: Insulin Aspart (Novolog Flexpen) 0 units SC ACHS RAUL Stop: 09/08/19 20:59 Last Admin: 08/10/19 08:04 Dose: 4 units Documented by: Insulin Glargine (Lantus Solostar Pen) 0 units SC HS RAUL; Protocol Stop: 09/08/19 20:59 Last Admin: 08/09/19 20:29 Dose: 15 units Documented by: Latanoprost (Xalatan Oph) 1 drops OP [facility] Stop: 09/06/19 21:50 Last Admin: 08/09/19 20:29 Dose: 1 drops Documented by: Miscellaneous (Carbohydrates For Hypoglycemia) 15 - 30 gm PO UD PRN PRN Reason: Hypoglycemia Protocol Stop: 09/06/19 21:50 Miscellaneous Information (Consult Glycemic Management Pharmacy) 1 ea N/A UD PRN PRN Reason: Consult Stop: 09/07/19 10:33 Morphine Sulfate (Morphine Sulfate) 4 mg IV Q4H PRN PRN Reason: Pain Stop: 08/23/19 20:53 Ondansetron HCl (Zofran) 4 mg IV Q6H PRN PRN Reason: Nausea Stop: 09/06/19 21:50 Terazosin HCl (Hytrin) 10 mg PO HS RAUL Stop: 09/06/19 21:50 Last Admin: 08/09/19 20:28 Dose: 10 mg Documented by: Tramadol HCl (Ultram) 25 - 50 mg PO Q4H PRN PRN Reason: Pain Stop: 09/08/19 20:53
[2019-08-10 08:31] LABS: BUN Creatinine Ratio 17.1 (10-20); Calcium 8.4 mg/dl (8.5-10.1); Est GFR (African American) 119.5; Est GFR (Non-African American) 103.1; Potassium 3.7 mmol/L (3.5-5.1)
--- NOTE | 2019-08-10 12:52 | Pharmacy Report ---
Pharmacy Glycemic Short Note 2 - Date of Service August 10, 2019 - Glycemic Short BSG Results (Last 24 hours): 08/09/19 08/09/19 08/09/19 16:09 18:11 20:21 Glucose POC Glucose 129 H 125 H 208 H 08/10/19 08/10/19 08/10/19 07:33 07:47 11:32 Glucose 117 H POC Glucose 127 H 179 H OUTPATIENT ANTIDIABETIC REGIMEN: * Novolin 70/30 - 5 units BIDM * Glipizide 10 mg PO BIDM * Metformin 1000 mg PO BIDM * A1c = 12.4 % (08/08/19) INPATIENT INSULIN REGIMEN AND CAUSES OF INSULIN RESISTANCE: ASSESSMENT: 08/09 * Mr. Paredes received 22 units of insulin yesterday * He is POD 1 s/p resection of prostate mass and diet has been resumed * Fasting BSG WNL but postprandial BSG increased after meal yesterday 08/08 * Mr. Paredes received 30 units of insulin yesterday * Has been NPO today for planned cystoscopy * BSGs stable so far today, indicating that current basal dose is appropriate PLAN FOR INPATIENT GLYCEMIC CONTROL: * Hold outpatient oral diabetes medications * Basal insulin - continue * 10-15 units qHS * Bolus insulin - tighten CR * NovoLog per scale ACHS or Q6hrs while NPO * Goal Range: Low 110 mg/dL - High 140 mg/dL * Correction Factor: 30 mg/dL/unit * Nutritional / Prandial insulin per carb ratio of 1 unit per 8 grams CHO consumed Discharge Recommendations: * A1c 12.4% on 08/08/19 * Goal A1c < 8% based on age/comorbidities * CDE note reports that patient was just initiated on 70/30 a week prior to admission and BSGs were still in the 200-400 range. * Recommend increasing Novolin 70/30 to 10 units BID * Discontinue glipizide d/t insulin initiation * Continue metformin
[2019-08-10 15:10] VITALS: PULSE 71; TEMP 98.6; O2SAT 99
--- NOTE | 2019-08-10 17:21 | Discharge Summary ---
Date of Service August 10, 2019 Admission HPI Per Admitting Provider Pt is 63 y/o M with PMH CVA, HTN, HLD, BPH, anemia, DM II who presented to ER with complaint of hematuria x1 week. Patient states 1 week ago noticed hematuria which then improved. Patient states again noted hematuria and has had difficulty urinating today. Reports pressure sensation in suprapubic area. Denies other abdominal, flank, back pain, fever, chills, nausea, vomiting. Denies dysuria. Reports history of BPH and frequent urination and reports taking terazosin. While in ER patient states was eventually able to urinate and passed large clot and since with resolution of pressure to suprapubic area. Patient reports history hemoglobin. It is reported from [facility] that patient with hemoglobin of 11.5 in October 2018. Denies diaphoresis, diarrhea, constipation, CHACKO, dizziness, syncope, vision changes, neck pain, CP, SOB, orthopnea, palpitations, cough, sore throat, choking, otalgia, rhinorrhea, paresthesias, weakness, extremity weakness, extremity edema, rashes. Admission Exam Per Admitting Provider General: no distress, WDWN Head: normocephalic, atraumatic Eyes: PERRL, EOM's intact, conjunctiva non-injected, anicteric ENT: normal inspection external ears, nose, mucous membranes moist Neck: supple, trachea midline Lungs: clear, no respiratory distress, no wheezing/rhonchi/rales CV: RRR, no pretibial edema Abd: +healed scar to right side of abdomen, normal BS, soft, non-tender, no flank tenderness to palpation Ext: no cyanosis, no calf tenderness Neuro: A&O x 3, no focal deficits noted, normal affect Skin: warm, dry Principal Diagnosis Hematuria, prostate mass Discharge Exam General: WD/WN male lying in bed, in no acute distress Head: normocephalic, atraumatic Eyes: PERRL, EOM's intact, conjunctiva non-injected, anicteric ENT: normal inspection external ears, nose, mucous membranes moist Neck: supple, trachea midline Lungs: clear, no respiratory distress, no wheezing/rhonchi/rales CV: RRR, no pretibial edema Abd: +healed scar to right side of abdomen, normal BS, soft, non-tender Ext: no cyanosis, no calf tenderness, moves extremities spontaneously : Muñoz catheter in place, drains dark red urine Neuro: A&O x 3, no dysarthria, no facial asymmetry, no focal deficits noted, moves extremities spontaneously Psych: normal affect Skin: warm, dry Discharge Data Allergies Allergy/AdvReac Type Severity Reaction Status Date / Time No Known Allergies Allergy Verified 08/09/19 13:11 Consultations 08/07/19 19:12 ED Decision to Admit Stat 08/08/19 08:00 Consult Urology Routine Procedures Performed Operation Date: 08/09/19 14:45 Actual Procedures p Transurethral Resection Prostate Mass With Clot Evacuation And Fulguration(Not Applicable) - Ian Olmstead, Ordered Studies 08/07/19 15:25 CT abd pelvis IV con only Stat IMPRESSION: 1. Marked prostamegaly with urinary bladder distention and wall thickening suggestive of chronic bladder outlet obstruction. Additionally, there is a large heterogeneous intraluminal mass of the urinary bladder which measures over 9 cm in greatest dimension. Urothelial malignancy versus intraluminal hematoma are the primary differential considerations. Correlation with urology consultation and cystoscopy recommended. 2. No urolith or obstructive uropathy. 3. 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 Additionally, there is mild nonspecific periaortic inflammatory stranding possibly reflecting underlying aortitis. 4. No bowel obstruction or bowel wall thickening. Normal appendix. Hospital Course (1) Hematuria: (2) Prostate mass: (3) Bladder mass: Pt is 63 y/o M with PMH CVA, HTN, HLD, BPH, anemia, DM II who presented to ER with complaint of hematuria x1 week. Then also difficulty urinating and suprapubic pressure. Denies F/C, N/V In ER pt afebrile, P: 92, R: 20, BP: 88/64 up to 125/72, 100% on RA. No leukocytosis, H/H: 10.2/32, BUN: 17, Cr: 1.15, GFR:79, UA: 3+ protein, 3+blood, >30 RBC, no bacteria CT ABD/PELVIS:Marked prostamegaly with urinary bladder distention and wall thickening suggestive of chronic bladder outlet obstruction. Additionally, there is a large heterogeneous intraluminal mass of the urinary bladder which measures over 9 cm in greatest dimension. Urothelial malignancy versus intraluminal hematoma are the primary differential considerations. No urolith or obstructive uropathy. -In ER given 1L NSS -In ER pt reported that he was able to urinate and reported passing large clot -Bladder scan prn - IV Rocephin given - Urology consulted for poss. bladder mass, pt underwent cystoscopy on 08/09/2019 - Findings on cystoscopy : Extremely Large Prostate with obstruction due to very large mass possibly an extremely large median lobe. Severe bleeding prostatic varicosity. - Pt is s/p Transurethral Resection Prostate Mass With Clot Evacuation And Fulguration of large prostatic varicosities - Prostate mass biopsy obtained - pathology pending -Discussed with urologist, Dr. Olmstead, plan to keep Muñoz in for next week. Then, in about a week pt will need to follow-up with urology. At that time results of biopsy should be available and further plan can be discussed. Per Dr. Olmstead, patient can be discharged. (4) Hypokalemia: K: 3.3 on admission -Replace and monitor (5) Anemia: Hgb:10.2 on admission It is reported pt with Hgb: 11.5 in 10/2018 at [facility] -Hgb ~9 stable (08/09) -No chest pain, dizziness, shortness of breath, lightheadedness (6) Diabetes mellitus, type II: Type II Diabtes Mellitus with snf current use of insulin -Hold metformin, glipizide, home insulin -NovoLog, Lantus sliding scale per protocol -Hb A1c 12.4% -cosmetology educator consulted as well as pharmacy glycemic management -Seems like patient was started on insulin 70/30 before his hospitalization -May need further adjustment of insulin prior to discharge On discharge, recommend increasing Novolin 70/30 to 10 units BID Discontinue glipizide d/t insulin initiation Continue metformin (7) CVA (cerebral vascular accident): No residual deficit -Held aspirin during the admission, restart on discharge (8) HTN (hypertension): Initially hypotensive in ER with BP 88/64 up to 125/72 1 L NSS -Held lisinopril, amlodipine, HCTZ on admission -Restarted amlodipine 10 mg daily -Currently normotensive, continue monitor blood pressure (9) BPH (benign prostatic hyperplasia): -Continue terazosin (10) HLD (hyperlipidemia): -Continue atorvastatin DVT Prophylaxis -SCDs Full Code as per discussion with pt Follows with Dr Alex at [facility] Tamara for routine care Total Time Total Time Spent Total Time Spent (In Minutes): 40 Total Time Includes: Examination of the Patient, Discharge Planning, Medication Reconciliation and Communication With Other Providers Discharge Plan Discharge Items [facility] Disposition: [facility] Reason For Visit: HEMATURIA,BLADDER MASS Discharge Diagnosis: Hematuria, prostate mass Activity: Per Instructions section Non-emergency contact: Primary Care Provider and Urologist Call non-emergency contact if: you have any medication questions and your symptoms worsen Follow-up/Referrals: Tamara FLORES [Primary Care Provider] - Diet: Carb Consistent or DM2 Addtl Attending Provider Instructions: You were evaluated by urologist, and biopsy of your prostate was taken. Results of the biopsy are pending. You will need to see the urologist in about a week. At that time the results of the biopsy will be available for you and you can discuss further plan. In the meantime you will need to keep the Muñoz catheter in. Your diabetes is currently poorly controlled, recommend to increase your insulin. Continue to monitor your blood sugar levels. For your blood pressure, we only restarted you on amlodipine, and for now recommend to hold the other medications. Recommend to check your blood pressure and reinitiate your other medications as needed, per your physician. Pending Studies at Discharge: Yes Studies:: Prostate mass biopsy Stand-Alone Forms: My [facility] Skilled Items Patient informed of condition?: Yes Discharge Level of Care: Other Communicable Disease: No Discharge Prognosis: Stable Lines: None Urinary Catheter: Yes Medications and DC Order Prescriptions: Continued atorvastatin 80 mg Tablet 80 mg PO DAILY RF: 0 aspirin [Aspir-81] 81 mg Tablet,Delayed Release (Dr/Ec) 81 mg PO DAILY RF: 0 amlodipine 10 mg Tablet 10 mg PO DAILY RF: 0 latanoprost 0.005 % Drops 1 drp OPHTHALMIC (EYE) PM RF: 0 metformin 1,000 mg Tablet 1,000 mg PO BID RF: 0 terazosin 10 mg Capsule 10 mg PO HS RF: 0 Changed Novolin 70/30 U-100 Insulin 100 unit/mL (70-30) Suspension 10 unit SUBCUT BID Qty: 0 RF: 0 Discontinued glipizide 10 mg Tablet 10 mg PO BID RF: 0 hydrochlorothiazide 25 mg Tablet 25 mg PO DAILY RF: 0 lisinopril 20 mg Tablet 20 mg PO DAILY RF: 0 Discharge Orders: Discharge Order (Routine); Ordered 08/10/19 Ordered By: Burak Ryan Admission Data Admit Date/Time: 08/08/19 10:50 Attending Provider: Burak Ryan Admit Provider: Eloy Dempsey Primary Care Provider: Tamara FLORES Other Providers: Eloy Dempsey ; Ian Olmstead
[2019-08-10 18:06] VITALS: BP 149/83
== END 2019-08-10 20:53 | DRG 713 ==
LOC: 2W 15:01 → ED 15:01 → SUATTDRO 19:51 → 2W 21:18